=== PATIENT | female | born 1945 | race Caucasian/White ===

== ENCOUNTER → 2019-09-15 | Outpatient (CLI) | payer MEDICARE ==
[~2019-09-15] MED LIST: ALBU90I INH; AMOCLA250 PO; AZIT500 PO
[2019-09-15 15:16] LABS: BASOPHILS ABSOLUTE AUTO 0.05 K/mm3 (0.00-0.23); BASOPHILS PERCENT AUTO 1 % (0-2); EOSINOPHILS PERCENT AUTO 1 % (0-6); Hematocrit 44.4 % (33.0-51.0); Hemoglobin 13.9 g/dL (11.5-16.0); IMMATURE GRAN ABSOLUTE AUTO 0.02 K/mm3 (0.00-0.10); IMMATURE GRAN PERCENT AUTO 0 % (0-1); LYMPHOCYTES ABSOLUTE AUTO 2.51 K/mm3 (0.84-5.20); LYMPHOCYTES PERCENT AUTO 28 % (21-46); MONOCYTES ABSOLUTE AUTO 0.83 K/mm3 (0.16-1.47); MONOCYTES PERCENT AUTO 9 % (4-13); Mean Corpuscular HGB Conc 31.3 g/dL (31.5-36.5); Mean Corpuscular Volume 93 fL (80-100); Mean Platelet Volume 12.8 fL (9.1-12.4); NEUTROPHILS ABSOLUTE AUTO 5.39 K/mm3 (1.96-9.15); NEUTROPHILS PERCENT AUTO 61 % (41-73); Platelet Count 245 K/mm3 (150-400); RDW Coefficient Variation 13.5 % (11.7-14.2); RDW Standard Deviation 46.2 fL (35.1-46.3)
[2019-09-15 15:37] LABS: Alanine Aminotransfer (ALT/SGP 21 U/L (12-78); Albumin, Blood 3.5 g/dL (3.4-5.0); Albumin/Globulin Ratio 0.9 (0.8-1.8); Alk Phos 81 U/L (50-136); Anion Gap 7 mmol/L (6-16); Aspartate Aminotrans (AST/SGOT 13 U/L (12-37); Bilirubin, Total 0.3 mg/dL (0.1-1.0); Blood Urea Nitrogen 13 mg/dL (8-24); Bun/Creatinine Ratio 14.6 (12.0-20.0); CO2, Blood 25 mmol/L (21-32); Calcium, Blood 9.5 mg/dL (8.5-10.1); Chloride, Blood 106 mmol/L (98-108); Creatinine, Blood 0.89 mg/dL (0.40-1.00); Globulin, Blood 3.7 g/dL (2.2-4.0); Glomerular Filtration Rate >60 (60-); Glucose, Blood 92 mg/dL (70-99); Potassium, Blood 3.6 mmol/L (3.5-5.5); Sodium, Blood 138 mmol/L (136-145); Total Protein, Blood 7.2 g/dL (6.4-8.2)
[2019-09-16 12:56] LABS: CHOL/HDL RATIO 2.7; Cholesterol 159 mg/dL (50-200); HDL Cholesterol 59 mg/dL (>39); LDL/HDL RATIO 1.1; Low Density Lipoprotein Chol 67 mg/dL (0-110); Triglycerides 165 mg/dL (30-160); Very Low Density Lipoprot Chol 33 mg/dL (6-32)
== END ==
LOC: LAB 13:16 → LAB SHORT 13:16
PROVIDERS: Nurse Practitioner Family
DX: I10 Essential (primary) hypertension (principal)
CPT/HCPCS: 80053; 80061; 85025

== ENCOUNTER 2021-04-19 09:08 | Day surgery (SDC) | payer MEDICARE ==
[~2021-04-19 09:08] MED LIST changes: -ALBU90I INH; +ALBU90OI INH
--- NOTE | 2021-04-19 12:50 | NUR ---
pt bp 78/54, retaken 86/66 QUENTIN YATES NOTIFIED OF BPS OK TO DC HOME AND FOLLOW UP WITH PCP XRAY CALLED AND CLEARED NO F/U XRAY NEEDED PT STABLE DENIES PAIN NO DRAINAGE READY TO DC HOME DAUGHTER AT PTS BEDSIDE
--- NOTE | 2021-04-19 13:10 | NUR ---
Discharge instructions reviewed with patient. Patient verbalizes understanding. Copy given to patient to take home. Dressing to procedure site clean, dry, intact with no visible drainage, swelling, erythema or bruising noted. Patient States Post-Procedure ride home has been arranged. Discharged via wheelchair to private car for ride home.
== END 2021-04-19 22:46 | disposition home or self-care (01) ==
LOC: ORSCMMR 09:08 → CT 09:08 → EDSTATUS 10:00 → ORSCMMR 10:00
DX: J85.0 Gangrene and necrosis of lung (principal); J43.9 Emphysema, unspecified; Z80.0 Family history of malignant neoplasm of digestive organs; Z88.1 Allergy status to other antibiotic agents; Z88.8 Allergy status to other drugs, medicaments and biological substances; Z87.891 Personal history of nicotine dependence
CPT/HCPCS: 32408; 71045; 77012; 88305; 88341; 88342

== ENCOUNTER 2021-04-22 17:33 | Inpatient (IN) | payer MEDICARE ==
[~2021-04-22] VITALS: Ht 154.9 cm; Wt 57.3 kg
[2021-04-22 19:12] LABS: BASOPHILS ABSOLUTE AUTO 0.08 K/mm3 (0.00-0.23); BASOPHILS PERCENT AUTO 0 % (0-2); EOSINOPHILS ABSOLUTE AUTO 0.04 K/mm3 (0.00-0.68); EOSINOPHILS PERCENT AUTO 0 % (0-6); Hematocrit 38.9 % (33.0-51.0); Hemoglobin 12.5 g/dL (11.5-16.0); IMMATURE GRAN ABSOLUTE AUTO 0.15 K/mm3 (0.00-0.10); IMMATURE GRAN PERCENT AUTO 1 % (0-1); LYMPHOCYTES ABSOLUTE AUTO 3.05 K/mm3 (0.84-5.20); LYMPHOCYTES PERCENT AUTO 13 % (21-46); MONOCYTES ABSOLUTE AUTO 1.22 K/mm3 (0.16-1.47); MONOCYTES PERCENT AUTO 5 % (4-13); Mean Corpuscular HGB Conc 32.1 g/dL (31.5-36.5); Mean Corpuscular Volume 84 fL (80-100); Mean Platelet Volume 11.9 fL (9.1-12.4); NEUTROPHILS ABSOLUTE AUTO 18.79 K/mm3 (1.96-9.15); NEUTROPHILS PERCENT AUTO 81 % (41-73); Platelet Count 407 K/mm3 (150-400); RDW Coefficient Variation 15.3 % (11.7-14.2); RDW Standard Deviation 46.1 fL (35.1-46.3); Red Blood Cell Count 4.63 M/mm3 (3.80-5.20); White Blood Cell Count 23.33 K/mm3 (4.00-11.30)
[2021-04-22 19:21] LABS: Source, Urine Clean Catch
[2021-04-22 19:27] LABS: Bilirubin, Urine Neg (Neg); Blood, Urine Neg (Neg); Glucose Qualitative, Urine Neg (Neg); Ketones, Urine Neg (Neg); Leukocyte Esterase, Urine 1+ (Neg); Nitrite, Urine Neg (Neg); Protein, Urine 1+ (Neg); Urobilinogen, Urine NORM (Normal)
[2021-04-22 19:29] LABS: Phosphorus, Blood 2.8 mg/dL (2.5-4.9)
[2021-04-22 19:41] LABS: Appearance, Urine Hazy (Clear); Color, Urine Pale Yellow (P-Yellow)
[2021-04-22 19:42] LABS: Alanine Aminotransfer (ALT/SGP 18 U/L (12-78); Albumin, Blood 2.8 g/dL (3.4-5.0); Albumin/Globulin Ratio 0.7 (0.8-1.8); Alk Phos 148 U/L (50-136); Anion Gap 7 mmol/L (6-16); Aspartate Aminotrans (AST/SGOT 24 U/L (12-37); Bilirubin, Total 0.6 mg/dL (0.1-1.0); Blood Urea Nitrogen 17 mg/dL (8-24); Bun/Creatinine Ratio 19.8 (12.0-20.0); CO2, Blood 27 mmol/L (21-32); Calcium, Blood 13.6 mg/dL (8.5-10.1); Chloride, Blood 103 mmol/L (98-108); Creatinine, Blood 0.86 mg/dL (0.40-1.00); Globulin, Blood 4.1 g/dL (2.2-4.0); Glomerular Filtration Rate >60 (60-); Glucose, Blood 91 mg/dL (70-99); Potassium, Blood 3.6 mmol/L (3.5-5.5); Sodium, Blood 137 mmol/L (136-145); Total Protein, Blood 6.9 g/dL (6.4-8.2)
[2021-04-22 19:43] LABS: Bacteria Few /hpf; Red Blood Cells, Urine 0-2 /hpf (0-2); Squamous Epithelial Cells Few /hpf (Few); Yeast/Fungi Urine Few /hpf
[2021-04-22 19:44] LABS: Amorphous Light (0-Heavy); Granular Casts 0-2 /lpf (0); Hyaline Casts 0-2 /lpf (0-2); Mucus Heavy (0-Heavy)
[2021-04-22 19:45] LABS: Uric Acid Crystals Rare /hpf
[2021-04-23] MEDS ORDERED: TIOT18 INH (02:35)
[2021-04-23] MEDS ORDERED: DULERA 200 MCG-13 GM INH (02:36)
--- NOTE | 2021-04-23 04:25 | NUR ---
SHIFT SUMMARY: PATIENT ADMITTED FROM ED. UNSTEADY ON FEET WHEN TRANSFEREING FROM [facility]. DYSPNEA WITH EXERTION, ACCESSORY MUSCLE USE, TACHYPNEA, PURSE LIPPED BREATHING SAT >94% ON RA. COARSE LUNGS THROUGH OUT. TELE =NSR. PATEINT HAS TREMORS STATES "IM COLD" WARM BLANKET PROVIDED. COMPLAINTS OF INDIGESTION, DENIES NEED FOR INTERVENTION. URINARY URGENCY/FREQUECNY DUE TO BOLUS' GIVEN IN ED. ECCYMOSIS SCATTERED T/O. RAISED BROWN SPOTS ON BACK. PATIENT REPORTS INCREASED WEAKNES, CONFUSION, MALAISE, AND DECREASED INTAKE.
[2021-04-23 06:04] LABS: Anion Gap 8 mmol/L (6-16); Blood Urea Nitrogen 12 mg/dL (8-24); Bun/Creatinine Ratio 18.8 (12.0-20.0); CO2, Blood 24 mmol/L (21-32); Chloride, Blood 109 mmol/L (98-108); Creatinine, Blood 0.64 mg/dL (0.40-1.00); Glomerular Filtration Rate >60 (60-); Glucose, Blood 112 mg/dL (70-99); Potassium, Blood 2.8 mmol/L (3.5-5.5); Sodium, Blood 141 mmol/L (136-145)
[2021-04-23 06:05] LABS: Calcium, Blood 10.8 mg/dL (8.5-10.1)
[2021-04-23 08:07] LABS: Alanine Aminotransfer (ALT/SGP 17 U/L (12-78); Albumin, Blood 2.2 g/dL (3.4-5.0); Albumin/Globulin Ratio 0.6 (0.8-1.8); Alk Phos 87 U/L (50-136); Anion Gap 6 mmol/L (6-16); Aspartate Aminotrans (AST/SGOT 8 U/L (12-37); Bilirubin, Total 0.5 mg/dL (0.1-1.0); Blood Urea Nitrogen 13 mg/dL (8-24); Bun/Creatinine Ratio 20.2 (12.0-20.0); CO2, Blood 25 mmol/L (21-32); Calcium, Blood 10.7 mg/dL (8.5-10.1); Chloride, Blood 110 mmol/L (98-108); Creatinine, Blood 0.65 mg/dL (0.40-1.00); Globulin, Blood 3.4 g/dL (2.2-4.0); Glomerular Filtration Rate >60 (60-); Glucose, Blood 108 mg/dL (70-99); Magnesium, Blood 1.8 mg/dL (1.6-2.4); Sodium, Blood 141 mmol/L (136-145); Total Protein, Blood 5.6 g/dL (6.4-8.2)
--- NOTE | 2021-04-23 12:30 | NUR ---
PT ARRIVED BACK TO ROOM AFTER MRI AND IN RESPIRATORY DISTRESS WITH RR 28/MINUTE. DR. GUIDO NOTIIFIED AND BD PROTOCOL INITIATED. PT PLACED ON 2 LPM VIA NC AND SATS WERE 92%. PT RECOVERED AFTER 3-4 MINUTES. RT NOTIFIED OF BD PROTOCOL. PT THEN REQUESTED TO GET UP TO BSC TO URINATE AND BECAME DYSPNEIC AGAIN. PT DID NOT RECOVER WITH PPURSED LIP BREATHING, TRIPOD POSITION. PLACED ON NON REBREATHER AT 10 LPM AND RT NOTIFIED AGAIN OF URGENCY. RT ARRIVED AND STARTED NEBULIZER TX.
--- NOTE | 2021-04-23 13:53 | NUR ---
PT TX TO PCU 18/ BEDSIDE REPORT GIVEN TO KAMALJIT DUDLEY. BELONGINGS PACKED AND SENT WITH PT. DR. GUIDO REQUESTED TO HOLD DIGOXIN AT THIS TIME. MEDICATIONS DISCOONTINUED PER ORDER.
[2021-04-23 14:02] LABS: Magnesium, Blood 1.6 mg/dL (1.6-2.4); Potassium, Blood 3.8 mmol/L (3.5-5.5); Thyroid Stimulating Hormone 0.517 uIU/mL (0.360-4.800)
[2021-04-23 16:04] LABS: Source, Urine Foley catheter
[2021-04-23 16:09] LABS: Bilirubin, Urine Neg (Neg); Blood, Urine 1+ (Neg); Glucose Qualitative, Urine Neg (Neg); Ketones, Urine 2+ (Neg); Leukocyte Esterase, Urine Neg (Neg); Nitrite, Urine Neg (Neg); Protein, Urine Neg (Neg); Specific Gravity, Urine 1.015 (1.003-1.022); Urobilinogen, Urine NORM (Normal)
[2021-04-23 16:17] LABS: Color, Urine Pale Yellow (P-Yellow)
[2021-04-23 16:18] LABS: Appearance, Urine Clear (Clear); Bacteria Rare /hpf; Red Blood Cells, Urine 0-2 /hpf (0-2); Squamous Epithelial Cells Rare /hpf (Few); White Blood Cells, Urine 0-2 /hpf (0-5)
--- NOTE | 2021-04-23 17:46 | NUR ---
TRANSFER NOTE PT TRANSFERED FROM [facility] AT APPROX 1325, RECEIVED BEDSIDE REPORT FROM OCTAVIA OAKES. PT SLEEPY, RESPONDING TO VERBAL STIMULI, ORIENTED TO PERSON, FAMILY AND FOLLOWING DIRECTIONS. PT QUICKLY FALLS BACK TO SLEEP. PT BEDREST, ASSIST WITH REPOSITIONING. PT DENIES PAIN, CHEST PAIN/PRESSURE, NAUSEA, DIZZINESS AND NUMB/TINGLING. PT SPO2 WITH MOVEMENT, PT ON 4L O2 VIOLETTE NC, SPO2 >92%. PER TELE SINUS/SINUS TACH 90-110'S; BP SOFT BUT STABLE. ALVAREZ PLACED AND URINE SENT PER PROTOCOL. OTHER VSS. NO OTHER ACUTE CHANGES NOTED. WILL CONTINUE TO MONITOR UNTIL REPORT GIVEN TO ONCOMING RN.
[2021-04-23 18:50] LABS: EOSINOPHILS PERCENT AUTO 0 % (0-6); Hematocrit 32.9 % (33.0-51.0); Hemoglobin 10.5 g/dL (11.5-16.0); IMMATURE GRAN ABSOLUTE AUTO 0.23 K/mm3 (0.00-0.10); IMMATURE GRAN PERCENT AUTO 1 % (0-1); LYMPHOCYTES ABSOLUTE AUTO 1.25 K/mm3 (0.84-5.20); LYMPHOCYTES PERCENT AUTO 4 % (21-46); MONOCYTES ABSOLUTE AUTO 0.83 K/mm3 (0.16-1.47); MONOCYTES PERCENT AUTO 3 % (4-13); Mean Corpuscular HGB 27.3 pg (26.0-34.0); Mean Corpuscular HGB Conc 31.9 g/dL (31.5-36.5); Mean Corpuscular Volume 86 fL (80-100); Mean Platelet Volume 11.5 fL (9.1-12.4); NEUTROPHILS ABSOLUTE AUTO 31.08 K/mm3 (1.96-9.15); NEUTROPHILS PERCENT AUTO 93 % (41-73); Platelet Count 369 K/mm3 (150-400); RDW Coefficient Variation 15.5 % (11.7-14.2); RDW Standard Deviation 47.8 fL (35.1-46.3); Red Blood Cell Count 3.84 M/mm3 (3.80-5.20); White Blood Cell Count 33.43 K/mm3 (4.00-11.30)
[2021-04-23 18:52] LABS: BASOPHILS ABSOLUTE AUTO 0.04 K/mm3 (0.00-0.23); BASOPHILS PERCENT AUTO 0 % (0-2)
[2021-04-23 19:07] LABS: Anion Gap 5 mmol/L (6-16); Blood Urea Nitrogen 12 mg/dL (8-24); Bun/Creatinine Ratio 18.8 (12.0-20.0); CO2, Blood 23 mmol/L (21-32); Calcium, Blood 9.3 mg/dL (8.5-10.1); Chloride, Blood 117 mmol/L (98-108); Creatinine, Blood 0.64 mg/dL (0.40-1.00); Glomerular Filtration Rate >60 (60-); Glucose, Blood 98 mg/dL (70-99); Potassium, Blood 3.9 mmol/L (3.5-5.5); Sodium, Blood 145 mmol/L (136-145)
[2021-04-23] MEDS ORDERED: FLUTICASONE PRO16 GM (19:08)
[2021-04-23] MEDS ORDERED: REMERON15 M7 PO (19:09)
[2021-04-23] MEDS ORDERED: LORAZEPAM0.5 MG PO (19:09)
[2021-04-23] MEDS ORDERED: HYDCHL12.5 PO (19:11)
[2021-04-23] MEDS ORDERED: LOSA50 PO (19:12)
[2021-04-24 05:45] LABS: BASOPHILS ABSOLUTE AUTO 0.08 K/mm3 (0.00-0.23); BASOPHILS PERCENT AUTO 0 % (0-2); EOSINOPHILS ABSOLUTE AUTO 0.01 K/mm3 (0.00-0.68); EOSINOPHILS PERCENT AUTO 0 % (0-6); Hematocrit 30.2 % (33.0-51.0); Hemoglobin 9.7 g/dL (11.5-16.0); IMMATURE GRAN ABSOLUTE AUTO 0.15 K/mm3 (0.00-0.10); IMMATURE GRAN PERCENT AUTO 1 % (0-1); LYMPHOCYTES ABSOLUTE AUTO 1.63 K/mm3 (0.84-5.20); LYMPHOCYTES PERCENT AUTO 6 % (21-46); MONOCYTES ABSOLUTE AUTO 0.96 K/mm3 (0.16-1.47); MONOCYTES PERCENT AUTO 4 % (4-13); Mean Corpuscular HGB 27.6 pg (26.0-34.0); Mean Corpuscular HGB Conc 32.1 g/dL (31.5-36.5); Mean Corpuscular Volume 86 fL (80-100); Mean Platelet Volume 11.1 fL (9.1-12.4); NEUTROPHILS ABSOLUTE AUTO 22.55 K/mm3 (1.96-9.15); NEUTROPHILS PERCENT AUTO 89 % (41-73); Platelet Count 331 K/mm3 (150-400); RDW Coefficient Variation 15.7 % (11.7-14.2); RDW Standard Deviation 48.5 fL (35.1-46.3); Red Blood Cell Count 3.52 M/mm3 (3.80-5.20); White Blood Cell Count 25.38 K/mm3 (4.00-11.30)
--- NOTE | 2021-04-24 06:03 | NUR ---
SHIFT SUMMARY PT ALERT AND ORIENTED TO SELF AND FAMILY. PT ANXIOUS AND AGGITATED DURING SHIFT. DAUGHTER AT BEDSIDE TO ASSIST IN KEEPING PT CALM. HR STABLE. BP STABLE. NO CP OR PRESSURE REPORTED. OXYGEN SATURATION MAINTAINED ABOVE 92% ON 3 L VIA NC. PT ABLE TO TURN SELF IN BED NEEDED. ALVAREZ TO GRAVITY DRAIN. WILL CONT TO MONITOR UNTIL REPORT GIVEN TO DAYSHIFT RN.
[2021-04-24 06:16] LABS: Alanine Aminotransfer (ALT/SGP 18 U/L (12-78); Albumin, Blood 2.1 g/dL (3.4-5.0); Albumin/Globulin Ratio 0.7 (0.8-1.8); Alk Phos 87 U/L (50-136); Anion Gap 9 mmol/L (6-16); Aspartate Aminotrans (AST/SGOT 13 U/L (12-37); Bilirubin, Total 0.3 mg/dL (0.1-1.0); Blood Urea Nitrogen 12 mg/dL (8-24); CO2, Blood 19 mmol/L (21-32); Chloride, Blood 118 mmol/L (98-108); Creatinine, Blood 0.63 mg/dL (0.40-1.00); Globulin, Blood 3.1 g/dL (2.2-4.0); Glomerular Filtration Rate >60 (60-); Glucose, Blood 87 mg/dL (70-99); Potassium, Blood 3.6 mmol/L (3.5-5.5); Sodium, Blood 146 mmol/L (136-145); Total Protein, Blood 5.2 g/dL (6.4-8.2)
[2021-04-24 08:54] LABS: Base Excess Venous -5.6 mmol/L; Bicarbonate Venous 20.8 mmol/L (24.0-30.0); PCO2 Venous 23.7 mmHg (38-42); pH Blood Venous 7.49 (7.34-7.37)
--- NOTE | 2021-04-24 15:20 | NUR ---
Spiritual care visit conducted. Patient is sitting up in bed and alert. Patient's family is present and sitting quietly in the rm. with a very sober mood and not warm toward a spiritual care visit. I provide a calming presence and prayer. Pt voiced appreciation for the prayer. I will continue to remain available to patient and fmaily.
--- NOTE | 2021-04-24 17:10 | NUR ---
SHIFT NOTE PT WITH IMPROVING AMS, PT DOES REMAIN CONFUSED AND HER MENATION WAXES AND WANES, BUT SHE IS CONSISTENTLY A/O X2-3 T/O THE DAY. PT WITH NOTED WHEEZE, AND AT TIMES REPORTS FEELING TIGHT IN HER CHEST WHICH IMPROVES WIT BREATHING TREATMENT. VSS. DENIES CP. PT AMBLUATED TO AND FROM BEDSIDE CHAIR TODAY, SHE ARGUMENTATIVE AND REFUSING TO USE ASSISTIVE DEVICES. FAMILY ASKED THAT NOTARY COME IN TO ROOM TO SIGN ADVANCED DIRECTIVE, ONCE NOTARY TO ROOM FAMILY DEMANDS TO SPEAK TO CHARGE NURSE THAT PT NO LONGER WISHES TO BE A DNR. PER FAMILY IT WAS NOT UNDERSTOOD UPON ADMISSION WHAT DNR ENTAILED. PROVIDER IS CALLED, HE ARRIVED TO ROOM TO DISCUSS CODE STATUS WITH PT AND FAMILY AND STATUS IS CHANGED TO FULL CODE
[2021-04-25 04:39] LABS: BASOPHILS ABSOLUTE AUTO 0.07 K/mm3 (0.00-0.23); BASOPHILS PERCENT AUTO 0 % (0-2); EOSINOPHILS ABSOLUTE AUTO 0.04 K/mm3 (0.00-0.68); EOSINOPHILS PERCENT AUTO 0 % (0-6); Hematocrit 29.1 % (33.0-51.0); Hemoglobin 9.4 g/dL (11.5-16.0); IMMATURE GRAN ABSOLUTE AUTO 0.16 K/mm3 (0.00-0.10); IMMATURE GRAN PERCENT AUTO 1 % (0-1); LYMPHOCYTES ABSOLUTE AUTO 1.93 K/mm3 (0.84-5.20); LYMPHOCYTES PERCENT AUTO 9 % (21-46); MONOCYTES PERCENT AUTO 5 % (4-13); Mean Corpuscular HGB 27.5 pg (26.0-34.0); Mean Corpuscular HGB Conc 32.3 g/dL (31.5-36.5); Mean Corpuscular Volume 85 fL (80-100); Mean Platelet Volume 11.8 fL (9.1-12.4); NEUTROPHILS ABSOLUTE AUTO 18.99 K/mm3 (1.96-9.15); NEUTROPHILS PERCENT AUTO 85 % (41-73); Platelet Count 329 K/mm3 (150-400); RDW Coefficient Variation 15.9 % (11.7-14.2); RDW Standard Deviation 49.1 fL (35.1-46.3); Red Blood Cell Count 3.42 M/mm3 (3.80-5.20); White Blood Cell Count 22.39 K/mm3 (4.00-11.30)
[2021-04-25 05:13] LABS: Anion Gap 8 mmol/L (6-16); Blood Urea Nitrogen 10 mg/dL (8-24); CO2, Blood 21 mmol/L (21-32); Calcium, Blood 10.1 mg/dL (8.5-10.1); Chloride, Blood 114 mmol/L (98-108); Creatinine, Blood 0.56 mg/dL (0.40-1.00); Glomerular Filtration Rate >60 (60-); Glucose, Blood 104 mg/dL (70-99); Potassium, Blood 3.2 mmol/L (3.5-5.5); Sodium, Blood 143 mmol/L (136-145)
--- NOTE | 2021-04-25 06:00 | NUR ---
SHIFT SUMMARY PT ALERT TO SELF DURING SHIFT. ANXIOUS AND AGGITATED AT TIMES. DAUGHTER AT BEDSIDE DURING SHIFT PROVIDING COMFORT. HOSPITALIST AWARE OF PT CONVERTING INTO AFIB AND BACK TO NSR. ORDERS FOR CARDIZEM ONCE IF A-FIB SUSTAINED IN 120'S AND TO NOTIFY PHYSICIAN IF GIVEN. EKG ORDER FOR 5 AM, IN CHART. PT REPOSITIONED Q 2 HRS AND NEEDED FOR COMFORT. VSS. WILL CONT TO MONITOR UNTIL RPEORT GIVEN TO DAYSHIFT RN.
--- NOTE | 2021-04-25 09:41 | NUR ---
DR GUIDO MET WITH PT AND FAMILY, DEICSION WAS MADE TO D/C HOME WITH HOME HEALTH, PER THE FAMILY AND PT EXPRESSED UNDERSTANDING OF DC TEACHING. IV POTASSIUM HAS BEEN CHANGED TO PO.
[2021-04-25] MEDS ORDERED: METOPROLOL SUCC25 MG PO (11:39)
[2021-04-25] MEDS ORDERED: ELIQUIS5 M2 PO (11:39)
[2021-04-25] MEDS ORDERED: METO25ER PO (11:42)
--- NOTE | 2021-04-25 11:55 | NUR ---
Received referral from nurse outdoor emergency care technician (Tayler Forbes) on 04/25/2021. Patient is to discharge 04/25/2021 with orders for home health and elected [facility]. Patient is a previous community referral for home health from her PCP on 04/22/2021. At that time patient's daughter notified [facility] that patient was currently admitted to [facility] and that they would like home health services once patient discharged. Gathered all supporting documentation for referral (face sheet, face to face, med list, H&P, and most recent PT assessment) and sent to [facility] for review. No further interventions required. Kenzie Childs Referral Liaison
[2021-04-25 15:09] LABS: QUANTIFERON MITOGEN VALUE 3.19 IU/mL (.); QUANTIFERON NIL VALUE 0.02 IU/mL (.); QUANTIFERON TB1 AG VALUE 0.02 IU/mL (.); QUANTIFERON TB2 AG VALUE 0.02 IU/mL (.); QUANTIFERON-TB GOLD PLUS Negative (Negative)
== END 2021-04-25 12:54 | disposition home health service (06) | DRG 640 ==
LOC: ER 17:33 → ERHOLD 17:34 → MEDS 17:34 → PCU 04-23 13:27
PROVIDERS: Family Medicine; Physician Assistant; ADMIT Internal Medicine
DX: E83.52 Hypercalcemia (principal); G93.41 Metabolic encephalopathy; C77.1 Secondary and unspecified malignant neoplasm of intrathoracic lymph nodes; C34.92 Malignant neoplasm of unspecified part of left bronchus or lung; R65.10 Systemic inflammatory response syndrome (SIRS) of non-infectious origin without acute organ dysfunction; E44.0 Moderate protein-calorie malnutrition; Z66 Do not resuscitate; I48.0 Paroxysmal atrial fibrillation; E87.6 Hypokalemia; Z68.22 Body mass index [BMI] 22.0-22.9, adult; I95.9 Hypotension, unspecified; J44.9 Chronic obstructive pulmonary disease, unspecified; F41.0 Panic disorder [episodic paroxysmal anxiety]; K63.9 Disease of intestine, unspecified; Z28.21 Immunization not carried out because of patient refusal; Z88.1 Allergy status to other antibiotic agents; Z79.899 Other long term (current) drug therapy; Z87.891 Personal history of nicotine dependence
CPT/HCPCS: 36415; 70553; 71046; 80048; 80053; 81001; 82306; 82330; 82397; 82652; 82803; 83605; 83690; 83735; 83970; 84100; 84132; 84443; 84484; 85025; 86480; 87040; 87086; 93005; 93010; 93306; 94640; 96361; 96372; 96374; 96375; 97110; 97162; 97166; 97535; 99285-25; A9270; A9579; G0378; J0630; J0696; J1650; J2060; J3370; J3480; J3489; J7030; J7040; J7050; J7120

== ENCOUNTER 2021-05-13 15:24 | Inpatient (IN) | payer MEDICARE ==
[~2021-05-13] VITALS: Ht 154.9 cm; Wt 74.6 kg
[~2021-05-13 15:24] MED LIST changes: +DULERA 200 MCG-13 GM INH; +ELIQUIS5 M2 PO; +FLUTICASONE PRO16 GM; +HYDCHL12.5 PO; +LORAZEPAM0.5 MG PO; +LOSA50 PO; +METO25ER PO; +METOPROLOL SUCC25 MG PO; +REMERON15 M7 PO; +TIOT18 INH
[2021-05-13 16:12] LABS: EOSINOPHILS ABSOLUTE AUTO 0.07 K/mm3 (0.00-0.68); EOSINOPHILS PERCENT AUTO 0 % (0-6); Hematocrit 32.5 % (33.0-51.0); Hemoglobin 10.1 g/dL (11.5-16.0); IMMATURE GRAN ABSOLUTE AUTO 1.52 K/mm3 (0.00-0.10); IMMATURE GRAN PERCENT AUTO 3 % (0-1); LYMPHOCYTES ABSOLUTE AUTO 6.73 K/mm3 (0.84-5.20); LYMPHOCYTES PERCENT AUTO 12 % (21-46); MONOCYTES ABSOLUTE AUTO 2.44 K/mm3 (0.16-1.47); MONOCYTES PERCENT AUTO 4 % (4-13); Mean Corpuscular HGB 26.8 pg (26.0-34.0); Mean Corpuscular HGB Conc 31.1 g/dL (31.5-36.5); Mean Corpuscular Volume 86 fL (80-100); Mean Platelet Volume 10.8 fL (9.1-12.4); NEUTROPHILS ABSOLUTE AUTO 44.02 K/mm3 (1.96-9.15); NEUTROPHILS PERCENT AUTO 80 % (41-73); Platelet Count 799 K/mm3 (150-400); RDW Coefficient Variation 16.3 % (11.7-14.2); Red Blood Cell Count 3.77 M/mm3 (3.80-5.20)
[2021-05-13 16:18] LABS: Alanine Aminotransfer (ALT/SGP 25 U/L (12-78); Albumin, Blood 2.3 g/dL (3.4-5.0); Albumin/Globulin Ratio 0.5 (0.8-1.8); Alk Phos 162 U/L (50-136); Anion Gap 8 mmol/L (6-16); Aspartate Aminotrans (AST/SGOT 21 U/L (12-37); Bilirubin, Total 0.6 mg/dL (0.1-1.0); Blood Urea Nitrogen 15 mg/dL (8-24); Bun/Creatinine Ratio 17.1 (12.0-20.0); CO2, Blood 22 mmol/L (21-32); Calcium, Blood 12.6 mg/dL (8.5-10.1); Chloride, Blood 106 mmol/L (98-108); Creatinine, Blood 0.88 mg/dL (0.40-1.00); Globulin, Blood 4.5 g/dL (2.2-4.0); Glomerular Filtration Rate >60 (60-); Glucose, Blood 201 mg/dL (70-99); Potassium, Blood 4.2 mmol/L (3.5-5.5); Sodium, Blood 136 mmol/L (136-145); Total Protein, Blood 6.8 g/dL (6.4-8.2)
[2021-05-13 16:24] LABS: BASOPHILS ABSOLUTE AUTO 0.12 K/mm3 (0.00-0.23); BASOPHILS PERCENT AUTO 0 % (0-2)
[2021-05-13] MEDS ORDERED: Nexium40 MG PO (18:22)
[2021-05-13 20:37] LABS: International Normalized Ratio 1.35; Prothrombin Time Results 13.9 Sec (9.7-11.5)
[2021-05-14 04:40] LABS: EOSINOPHILS ABSOLUTE AUTO 0.03 K/mm3 (0.00-0.68); EOSINOPHILS PERCENT AUTO 0 % (0-6); Hematocrit 28.5 % (33.0-51.0); Hemoglobin 8.9 g/dL (11.5-16.0); IMMATURE GRAN ABSOLUTE AUTO 0.95 K/mm3 (0.00-0.10); IMMATURE GRAN PERCENT AUTO 2 % (0-1); LYMPHOCYTES ABSOLUTE AUTO 1.74 K/mm3 (0.84-5.20); LYMPHOCYTES PERCENT AUTO 3 % (21-46); MONOCYTES ABSOLUTE AUTO 1.27 K/mm3 (0.16-1.47); MONOCYTES PERCENT AUTO 2 % (4-13); Mean Corpuscular HGB 26.5 pg (26.0-34.0); Mean Corpuscular HGB Conc 31.2 g/dL (31.5-36.5); Mean Corpuscular Volume 85 fL (80-100); Mean Platelet Volume 10.5 fL (9.1-12.4); NEUTROPHILS ABSOLUTE AUTO 50.38 K/mm3 (1.96-9.15); NEUTROPHILS PERCENT AUTO 93 % (41-73); Platelet Count 600 K/mm3 (150-400); RDW Coefficient Variation 16.1 % (11.7-14.2); RDW Standard Deviation 49.4 fL (35.1-46.3); Red Blood Cell Count 3.36 M/mm3 (3.80-5.20)
[2021-05-14 04:46] LABS: BASOPHILS ABSOLUTE AUTO 0.03 K/mm3 (0.00-0.23); BASOPHILS PERCENT AUTO 0 % (0-2)
[2021-05-14 05:06] LABS: Albumin, Blood 2.2 g/dL (3.4-5.0); Albumin/Globulin Ratio 0.6 (0.8-1.8); Bilirubin, Total 0.5 mg/dL (0.1-1.0); Bun/Creatinine Ratio 22.8 (12.0-20.0); Creatinine, Blood 1.01 mg/dL (0.40-1.00); Potassium, Blood 4.4 mmol/L (3.5-5.5); Total Protein, Blood 6.2 g/dL (6.4-8.2)
--- NOTE | 2021-05-14 05:14 | NUR ---
SHIFT SUMMARY PT REMAINS PAINFUL WITH MOVEMENT. 50MCG FENTANYL PRN FOR PAIN + LIDOCAINE PATCHES PLACED TO RIGHT LATERAL RIBS/BACK. PT SLOW TO RESPOND TO QUESTIONS. REFUSING TO DRINK WATER AND TAKE PO, IVF INFUSING PER ORDERS. PT INCONTINENT OF URINE AND ATTENDS CHANGED PRN. PT TACHYPNIC AND TACHYCARDIC AT TIMES WITH EXERTION. ON 4L O2 VIA NC AND SATTING 90-94% WITH CONT BIOX IN PLACE. PLAN FOR REPEAT CHEST XRAY THIS AM AND FOR PT/OT/PALLIATIVE CARE CONSULTS TODAY. CALL LIGHT WITHIN REACH. BED ALARM IN PLACE FOR SAFETY.
[2021-05-14 09:44] LABS: Source, Urine Clean Catch
[2021-05-14 09:47] LABS: Bilirubin, Urine Neg (Neg); Blood, Urine 1+ (Neg); Glucose Qualitative, Urine Neg (Neg); Ketones, Urine Neg (Neg); Leukocyte Esterase, Urine Neg (Neg); Nitrite, Urine Neg (Neg); Protein, Urine 2+ (Neg); Specific Gravity, Urine 1.015 (1.003-1.022); Urobilinogen, Urine NORM (Normal)
[2021-05-14 09:56] LABS: Appearance, Urine Hazy (Clear); Bacteria Not Seen /hpf; Color, Urine Yellow (P-Yellow); Squamous Epithelial Cells Mod /hpf (Few); White Blood Cells, Urine Not Seen /hpf (0-5)
--- NOTE | 2021-05-14 12:00 | NUR ---
Initial Pal Care visit and case conferences with RN, OT & pt's sister, Lilia. Pt was admitted yesterday evening after a fall at home resulting in multiple rib fx, R pneumothorax and poss danny basal hemothorax. Carmen has a PMH of COPD, and recently discovered DARRYL mass. Pt is also on anticoag tx for hx of a-fib. Pt has been living with her sister, who states that pt's daughter has recently arrived from [place] and had planned to take pt back to [place] with her on Thursday. Pt had LULobe mass biopsied but results were inconclusive. Sister states pt was referred to Dr linda Patrick, who did not want to do bronchoscopy for additional w/u and biopsies due to pt's frailty and comorbidities. He wanted to give pt time to get stronger and to reconsider if she desired bronchoscopy due to the risks involved with her comorbidities, especially COPD. Sister states that js felt her mom would get better care in [place] and set a plan in place to move Carmen there. In review of EMR and case conference with OT, pt is not currently able to participate in conversations re: goals of care or code status. She was able to say that she lived with her sister but did not know where she was and could not converse. Pt does not have an advanced directive on file and sister states she has not had any conversations with pt in regards to her preferred code status or goals of care if her condition were to worsen. Sister has been caring for pt in her home and also caring for her own with dementia. Sister confirms that Lila pelaez, would be pt's medical decision maker if Carmen is unable to. RN reports Pt is not swallowing well and has refused all PO intake today. Js is expected to arrive here or already be here per pt's sister but as of 1214 Js has not arrived. Sister states Lila pelaez, went to pickle solution maker her at the airport and would be here directly after that. RN to page me when family arrives. Pt was sleeping soundly and did not wake to voice. She is lying fairly flat, supine. She had recently received pain medication for reported severe rib and chest pain. Pt looks flushed and exhausted lying in bed. She does not look comfortable but is not restless or making any noise. Resp even, sl labored. Plan to return when family arrives to review goals and plan of care per pt/family wishes.
[2021-05-14 12:25] LABS: Hematocrit 26.5 % (33.0-51.0); Hemoglobin 8.3 g/dL (11.5-16.0)
[2021-05-14 12:49] LABS: Mean Corpuscular HGB Conc 31.9 g/dL (31.5-36.5); Mean Corpuscular Volume 85 fL (80-100); Mean Platelet Volume 10.6 fL (9.1-12.4); Platelet Count 602 K/mm3 (150-400); RDW Coefficient Variation 16.3 % (11.7-14.2); RDW Standard Deviation 50.1 fL (35.1-46.3); Red Blood Cell Count 3.11 M/mm3 (3.80-5.20)
[2021-05-14 12:59] LABS: White Blood Cell Count 64.11 K/mm3 (4.00-11.30)
[2021-05-14 14:05] LABS: EOSINOPHILS PERCENT AUTO 0 % (0-6); Hematocrit 27.4 % (33.0-51.0); Hemoglobin 8.6 g/dL (11.5-16.0); IMMATURE GRAN ABSOLUTE AUTO 1.85 K/mm3 (0.00-0.10); IMMATURE GRAN PERCENT AUTO 3 % (0-1); LYMPHOCYTES ABSOLUTE AUTO 2.21 K/mm3 (0.84-5.20); LYMPHOCYTES PERCENT AUTO 3 % (21-46); MONOCYTES ABSOLUTE AUTO 2.83 K/mm3 (0.16-1.47); MONOCYTES PERCENT AUTO 4 % (4-13); Mean Corpuscular HGB 26.9 pg (26.0-34.0); Mean Corpuscular HGB Conc 31.4 g/dL (31.5-36.5); Mean Corpuscular Volume 86 fL (80-100); Mean Platelet Volume 10.6 fL (9.1-12.4); NEUTROPHILS ABSOLUTE AUTO 65.17 K/mm3 (1.96-9.15); NEUTROPHILS PERCENT AUTO 90 % (41-73); Platelet Count 618 K/mm3 (150-400); RDW Coefficient Variation 16.4 % (11.7-14.2); RDW Standard Deviation 50.9 fL (35.1-46.3)
[2021-05-14 14:09] LABS: Anion Gap 8 mmol/L (6-16); Blood Urea Nitrogen 27 mg/dL (8-24); Bun/Creatinine Ratio 30.4 (12.0-20.0); CO2, Blood 23 mmol/L (21-32); Calcium, Blood 10.9 mg/dL (8.5-10.1); Chloride, Blood 110 mmol/L (98-108); Creatinine, Blood 0.89 mg/dL (0.40-1.00); Glomerular Filtration Rate >60 (60-); Glucose, Blood 156 mg/dL (70-99); Potassium, Blood 4.3 mmol/L (3.5-5.5); Sodium, Blood 141 mmol/L (136-145)
[2021-05-14 14:13] LABS: BASOPHILS ABSOLUTE AUTO 0.03 K/mm3 (0.00-0.23); BASOPHILS PERCENT AUTO 0 % (0-2)
[2021-05-14 14:15] LABS: White Blood Cell Count 72.09 K/mm3 (4.00-11.30)
[2021-05-14 14:20] LABS: BASOPHILS PERCENT MAN 0 % (0-2); EOSINOPHILS PERCENT MAN 0 % (0-6); LYMPHOCYTES ABSOLUTE MAN 1.28 K/mm3 (0.84-5.20); LYMPHOCYTES PERCENT MAN 2 % (21-46); MONOCYTES ABSOLUTE MAN 2.56 K/mm3 (0.16-1.47); MONOCYTES PERCENT MAN 4 % (4-13); NEUTROPHILS ABSOLUTE MAN 60.26 K/mm3 (1.96-9.15); SEG NEUTROPHILS PERCENT MAN 94 % (41-73); TOTAL CELLS COUNTED 100
--- NOTE | 2021-05-14 15:16 | NUR ---
Pal Care visit to pt's room and js at bedside. Pt remained sound asleep t/o my visit. Case conferenced with pt's RN, FRANSICO, and Rn Cvor came to visit as I was leaving. PT/OT visits today were brief due to pt's pain and fatigue and inability to participate in therapy. 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 I am unclear as to what pt's baseline level of cognition is, as pt was encephalopathic on her previous admission 3-4 weeks ago. Js is distressed re: plane tickets for her mom to go to [place] on Thursday and need to cancel and an appointment with a physician in [place]. Pt appears gravely ill. Js asked how long pt would be here so she could reschedule flight. I asked that she wait to see if her mom was able to improve from her current status but cautioned, that with no PO intake and overall decline over the past month that travel may not be possible. Discussed pain and s/s management with pt's RN, js and pt's , as well as pharmacy. VO obtained to start duragesic patch, 25mcg for longer lasting pain management with prn use of IV fentanyl for breakthru pain. Js in agreement with that plan and looking forward to speaking with Dr. Dr Bernstein to try and meet with js later this afternoon. Report to RN, FRANSICO and on my visit with js. Pt's Son-in-law also present.
--- NOTE | 2021-05-14 15:38 | NUR ---
Spiritual Care visit. Pt. is unresponsive, but family is present. Family welcomes my visit. Family is a little unsettled as they were in the process of trying to move the pt. to [place] where they live and there are better healthcare hospice options. Listened empathetically, and established rapport woth family. Family verbalized the desire to get a clearer picture of the pts. diagnosis. NOrmlaized the Pt. experience. Family displayed evidence of understanding and acceptance. Palliative Care was present and communicated that the doctor was planning to come leter in the afternoon. Prayed pastorally for both the pt. and family. Family verbalized gratitude for the spiritual care visit.
--- NOTE | 2021-05-14 18:42 | NUR ---
Spiritual Care Attempted. The floor nurse asked if I could check on the grieving family. When we approached they respectfully waived this systems analyst engineer off. I will check pt. in the a.m.
--- NOTE | 2021-05-15 01:35 | NUR ---
PT HAD AN INCREASE IN RESPIRATIONS AND WORK OF BREATHING, RESPIRATORY THERAPIST CALLED TO ASSESS PATIENT. AT THAT TIME RESPIRATORY THERAPIST RECOMMENDED CHEST XRAY, DR CALLED AND XRAY WAS ORDERED.
--- NOTE | 2021-05-15 01:55 | NUR ---
CXR: CHEST XRAY RESULTS REVIEWED W/DR HAMMOND. NEW ORDER TO PLACE PT ON CPAP AT LOWEST SETTINGS. RT AND PRIMARY RN NOTIFIED.
[2021-05-15 02:50] LABS: Alanine Aminotransfer (ALT/SGP 17 U/L (12-78); Albumin, Blood 2.2 g/dL (3.4-5.0); Albumin/Globulin Ratio 0.6 (0.8-1.8); Alk Phos 142 U/L (50-136); Anion Gap 10 mmol/L (6-16); Aspartate Aminotrans (AST/SGOT 22 U/L (12-37); Bilirubin, Total 0.3 mg/dL (0.1-1.0); Blood Urea Nitrogen 33 mg/dL (8-24); Bun/Creatinine Ratio 37.5 (12.0-20.0); CO2, Blood 22 mmol/L (21-32); Calcium, Blood 9.9 mg/dL (8.5-10.1); Chloride, Blood 113 mmol/L (98-108); Creatinine, Blood 0.88 mg/dL (0.40-1.00); Globulin, Blood 3.6 g/dL (2.2-4.0); Glomerular Filtration Rate >60 (60-); Glucose, Blood 104 mg/dL (70-99); Potassium, Blood 4.4 mmol/L (3.5-5.5); Sodium, Blood 145 mmol/L (136-145); Total Protein, Blood 5.8 g/dL (6.4-8.2)
[2021-05-15 02:58] LABS: BASOPHILS ABSOLUTE AUTO 0.03 K/mm3 (0.00-0.23); BASOPHILS PERCENT AUTO 0 % (0-2); EOSINOPHILS PERCENT AUTO 0 % (0-6); IMMATURE GRAN ABSOLUTE AUTO 2.92 K/mm3 (0.00-0.10); IMMATURE GRAN PERCENT AUTO 3 % (0-1); LYMPHOCYTES ABSOLUTE AUTO 1.88 K/mm3 (0.84-5.20); LYMPHOCYTES PERCENT AUTO 2 % (21-46); MONOCYTES ABSOLUTE AUTO 3.67 K/mm3 (0.16-1.47); MONOCYTES PERCENT AUTO 4 % (4-13); Mean Corpuscular HGB 26.9 pg (26.0-34.0); Mean Corpuscular HGB Conc 30.8 g/dL (31.5-36.5); Mean Corpuscular Volume 88 fL (80-100); Mean Platelet Volume 10.3 fL (9.1-12.4); NEUTROPHILS ABSOLUTE AUTO 81.72 K/mm3 (1.96-9.15); NEUTROPHILS PERCENT AUTO 91 % (41-73); Platelet Count 609 K/mm3 (150-400); RDW Coefficient Variation 16.4 % (11.7-14.2); RDW Standard Deviation 52.3 fL (35.1-46.3); Red Blood Cell Count 2.97 M/mm3 (3.80-5.20)
[2021-05-15 03:00] LABS: White Blood Cell Count 90.22 K/mm3 (4.00-11.30)
--- NOTE | 2021-05-15 03:00 | NUR ---
CRIMINAL INVESTIGATOR CUSTOMS RT TO PLACE CPAP AT APPROX 0200, PT APPEARED AGGITATED AND IN PAIN. PAIN MEDICATION GIVEN AT APPROX 0215. PT HAD DECREASED LOC AND O2 SATURATIONS STARTED DECREASING. COUNTY AGRICULTURAL AGENT NOTIFIED, NARCAN GIVEN AT 0220, CRIMINAL INVESTIGATOR CUSTOMS CALLED. NO EFFECTED NOTED FROM NARCAN, STATS MAINTAINING MID 70S. CRIMINAL INVESTIGATOR CUSTOMS AND NURSING MARKETING DIRECTOR ASSISTED LIVING IN ROOM AT THAT TIME, RT PLACED PATIENT ON NONREBREATHER, STATS BEGAN TO INCREASE TO 90'S (SEE CRIMINAL INVESTIGATOR CUSTOMS FLOW SHEET FOR VITALS.) ANOTHER DOSE OF NARCAN WAS GIVEN AT 022, NO CHANGE IN RESPONSIVENESS. DR NAJERA AND RESIDENT IN ROOM, PT TRANSFERED TO ICU. BELONGINGS INCLUDING DENTURES AND GLASSES TAKEN TO PT NEW ROOM. BEDSIDE REPORT GIVEN. DAUGHTER NOTIFIED AND STATED SHE WOULD NOTIFY PATIENTS SISTER.
[2021-05-15 04:19] LABS: PCO2 Arterial > 105 mmHg (35-45); PO2 Arterial 126 mmHg (80-100); pH Blood Arterial 6.96 (7.35-7.45)
[2021-05-15 05:47] LABS: PCO2 Arterial 33.6 mmHg (35-45); PO2 Arterial 68.7 mmHg (80-100); pH Blood Arterial 7.41 (7.35-7.45)
--- NOTE | 2021-05-15 05:47 | NUR ---
Patient brought to unit via bed at 0230 by ONCOLOGY CONSULTANT. On arrivial, patient was obtunded. tachycardic, but otherwise VSS. Pt intubated for airway protection at 0250 without complication. OGT and ring inserted per order. Chest xray obtained. Pt becoming more responsive, moving in bed, reaching for tubes, lines. Bilateral soft wrist restraints applied, sedation started. Pt taken to head CT by this RN and RT, tolerated well. Dr. Mathews performing bedside US, consent obtained for L side thoracentesis. Procedure sucessful; vital signs remained stable. Occlusive dressing applied. Minimal UOP since ring indertion; Dr mathews made aware. Maintenace fluid initiated.
[2021-05-15 07:25] LABS: Automated BF RBC Count 0.044 M/mm3 (0-0); Automated BF WBC Count 5.473 K/mm3 (0-999); Body Fluid WBC Count 5473 /mm3 (0-999); RBC Count, Body Fluid 44000 /mm3 (0-0)
[2021-05-15 07:39] LABS: Albumin, Body Fluid 1.6 g/dL; Glucose, Body Fluid 96 mg/dL; Lactate Dehydrogenase, Body Fl 201 U/L; Protein, Body Fluid 3.2 g/dL
[2021-05-15 07:55] LABS: Total Cell Count, Body Fluid 100
[2021-05-15 08:02] LABS: Color, Body Fluid Red (None-Yellow)
[2021-05-15 08:03] LABS: Appearance, Body Fluid Hazy (Clear)
--- NOTE | 2021-05-15 08:53 | NUR ---
ASSUMED CARE REPORT FROM JAIMIE DUDLEY. PT INTUBATED AND SEDATED. VENT SETTINGS AC/VC 28/350/5/50%. LUNGS DIM THOUGHOUT. SMALL AMOUNT OF THICK YELLOW SECRETIONS THROUGH ETT. TACHYPNEA. PROPOFOL GTT FOR SEDATION, FENTANYL IVP PRN. COUGH/SWALLOW REFLEX PRESENT. GIANFRANCO. GRIMACES TO PAINFUL STIMULI. DOES NOT FOLLOW COMMANDS. ST ON MONITOR, RATE 120'S. PLAN FOR METOPROLOL PT. BP STABLE. ABD ROUND, SOFT, NON TENDER. BT X 4. OGT TO LIS. GREEN BILE OUT. ALVAREZ PATENT, SCANT CHETAN URINE IN DRAINAGE BAG. ECCHYMOSIS TO LATERAL RIGHT TRUNK. IVF AT 75 ML/HR. PIV X 2. WILL CONTINUE TO MONITOR.
--- NOTE | 2021-05-15 10:32 | NUR ---
Pal Care visit to pt/family and Case conference with RN, CM & Geovanna Maguire & Lucila. EMR reviewed and events and transfer to ICU due to resp failure, increased unresponsiveness and critical CO2 noted. Currently, pt is intubated and medicated for pain and agitation. HR is in the 120's. Pedal pulse palpable. Pt is unresponsive to voice and touch. Multiple family members at the bedside including Medical proxy, Js-Lila, twin-sister Lilia, pt's son in law and brother in law. Print Line Inspector also present for joint meeting with family at bedside. Current status and concerns reviewed and gently discussed multiple comorbidities and new acute issues weighing in on very guarded prognosis. Inquired to ascertain if js would consider transfer to a higher level facility in order to pursue biopsy of lung mass and js is not interested in that. She wants to focus on the immediate issue of pt's resp failure and getting her off the vent. She states her mom would not want to be on a ventilator detention. After a thorough discussion of code status and level of care desired, js states she wants full care but no CPR. If pt is able to to be extubated, she would not want pt reintubated if her mom was too weak to cont breathing on her own. VO obtained and entered for DNR and report on my visit provided to Dr Maguire and RN. Plan is for to review clinical status in detail with js after he can review records. Pt does not currently have nonverbal indicators noted of pain or distress. Pal Care to cont to follow. Js does not want to discuss comfort care or hospice at this time, stating, "They take everything away and just give them morphine. I want her to have fluids, food, medications".
--- NOTE | 2021-05-15 12:20 | NUR ---
Pt. is unresponsive. Family members are present. Re-establish rapport with Pts. family. Assist family in rotating family into ICU. Will monitor family and make spiritual care available as conditions allow.
--- NOTE | 2021-05-15 17:23 | NUR ---
SHIFT SUMMARY PT REMAINS INTUBATED AND SEDATED. VENT SETTINGS AC/VC 28/380/5/45%. LUNGS DIM THROUGHOUT, COARSE ON LEFT SIDE. PROPOFOL AND FENTANYL GTT FOR PAIN AND SEDATION. PT COMPLIANT c VENT, RR 28. COUGH/GAG/SWALLOW REFLEX. GRIMACES c PAIN. DOES NOT FOLLOW COMMANDS. SR, RATE 100, BP STABLE. TUBE FEEDS STARTED THIS SHIFT, VHP AT GOAL 20 ML/HR c 30 ML FLUSHES q 4 HR. ALVAREZ PATENT, 75 ML CHETAN CLOUDY URINE OUT. DR ASTUDILLO AWARE, IVF INCREASED TO 200 ML/HR. FAMILY UPDATED THIS SHIFT, DAUGHTER KASSI CHANGED CODE STATUS TO DNR, REQUESTING THAT PT NOT HAVE PURPLE BAND PLACED ON HER D/T PREVIOUS DISTRESS WHEN SHE HAD BAND ON PREVIOUS ADMISSION. FAMILY AWARE OF POTENTIAL FOR ACCIDENTAL CODE. WILL CONTINUE TO MONITOR UNTIL REPORT TO ONCOMING NURSE.
[2021-05-15 17:45] LABS: Source, Urine Foley catheter
[2021-05-15 17:49] LABS: Bilirubin, Urine Neg (Neg); Blood, Urine 5+ (Neg); Glucose Qualitative, Urine Neg (Neg); Ketones, Urine Neg (Neg); Leukocyte Esterase, Urine 2+ (Neg); Nitrite, Urine Neg (Neg); Protein, Urine 2+ (Neg); Specific Gravity, Urine 1.015 (1.003-1.022); Urobilinogen, Urine NORM (Normal)
[2021-05-15 18:13] LABS: Appearance, Urine Hazy (Clear); Color, Urine Pale Yellow (P-Yellow)
[2021-05-15 18:14] LABS: Amorphous Light (0-Heavy); Bacteria Mod /hpf; Granular Casts 0-2 /lpf (0); Hyaline Casts 0-2 /lpf (0-2); Mucus Mod (0-Heavy); Red Blood Cells, Urine 25-50 /hpf (0-2); Squamous Epithelial Cells Rare /hpf (Few)
[2021-05-16 04:55] LABS: Hematocrit 21.3 % (33.0-51.0); Hemoglobin 6.7 g/dL (11.5-16.0); Mean Corpuscular HGB 27.2 pg (26.0-34.0); Mean Corpuscular HGB Conc 31.5 g/dL (31.5-36.5); Mean Corpuscular Volume 87 fL (80-100); Mean Platelet Volume 10.5 fL (9.1-12.4); NRBC ABSOLUTE 0.02 K/mm3 (0.00-0.02); Platelet Count 445 K/mm3 (150-400); RDW Coefficient Variation 16.6 % (11.7-14.2); RDW Standard Deviation 51.8 fL (35.1-46.3); Red Blood Cell Count 2.46 M/mm3 (3.80-5.20)
[2021-05-16 05:27] LABS: Albumin, Blood 1.6 g/dL (3.4-5.0); Albumin/Globulin Ratio 0.4 (0.8-1.8); Bilirubin, Total 0.6 mg/dL (0.1-1.0); Bun/Creatinine Ratio 34.9 (12.0-20.0); Calcium, Blood 8.4 mg/dL (8.5-10.1); Creatinine, Blood 1.09 mg/dL (0.40-1.00); Globulin, Blood 3.6 g/dL (2.2-4.0); Magnesium, Blood 2.2 mg/dL (1.6-2.4); Phosphorus, Blood 1.5 mg/dL (2.5-4.9); Potassium, Blood 3.6 mmol/L (3.5-5.5); Total Protein, Blood 5.2 g/dL (6.4-8.2)
[2021-05-16 05:35] LABS: BAND PERCENT MAN 5 % (0-8); BASOPHILS PERCENT MAN 0 % (0-2); EOSINOPHILS PERCENT MAN 0 % (0-6); LYMPHOCYTES ABSOLUTE MAN 0.61 K/mm3 (0.84-5.20); LYMPHOCYTES PERCENT MAN 1 % (21-46); MONOCYTES ABSOLUTE MAN 3.66 K/mm3 (0.16-1.47); MONOCYTES PERCENT MAN 6 % (4-13); MYELOCYTE ABSOLUTE MAN 0.61 K/mm3 (0.00-0.00); MYELOCYTE PERCENT MAN 1 % (0-0); NEUTROPHILS ABSOLUTE MAN 56.21 K/mm3 (1.96-9.15); SEG NEUTROPHILS PERCENT MAN 87 % (41-73); TOTAL CELLS COUNTED 100
--- NOTE | 2021-05-16 08:14 | NUR ---
ASSUMED CARE BEDSIDE REPORT FROM JAIMIE DUDLEY AT 0700. PT INTUBATED AND SEDATED. VENT SETTINGS AC/VC 28/300/5/45%. LUNGS DIM THROUGHOUT, COARSE ON LEFT SIDE. PROPOFOL AND FENTANYL GTT FOR PAIN AND SEDATION. PT GRIMACES c ORAL CARE, TACHYPENIC. DOES NOT FOLLOW COMMANDS. NO WITHDRAWAL FROM PAINFUL STIMULI. CORNEAL REFLEX INTACT. COUGH/GAG/SWALLOW REFLEX PRESENT. ST ON MONITOR, RATE 100. BP STABLE. AFEBRILE. WARM TO TOUCH. ABD DISTENDED, FIRM, HYPOACTIVE BT. TUBE FEEDS AT GOAL, 20 ML/HR, 400 ML RESIDUALS THIS AM, 250 ML REFED. ALVAREZ PATENT, DRAINING CHETAN URINE c SEDIMENT TO GRAVITY. PHOS TO BE REPLACED THIS SHIFT. WILL CONTINUE TO MONITOR.
[2021-05-16 08:53] LABS: Vancomycin, Random 7.8 ug/mL
--- NOTE | 2021-05-16 12:16 | NUR ---
Spiritual Care Visit. Fill out a "Things we care to know..." survey with daughter Lila and other family members.
[2021-05-16 16:24] LABS: Hematocrit 23.8 % (33.0-51.0); Hemoglobin 7.6 g/dL (11.5-16.0)
--- NOTE | 2021-05-16 18:07 | NUR ---
SHIFT SUMMARY NO ACUTE CHANGES THIS SHIFT. REMAINS INTUBATED AND SEDATED. VENT SETTINGS 16/300/5/45. PROPOFOL AND FENTANYL GTT FOR PAIN AND SEDATION. LUNGS COARSE ON LEFT SIDE, DIM THROUGHOUT. SMALL THICK [place] SECRETIONS THROUGH ETT. RESPONSIVE TO PAINFUL STIMULI, DOES NOT FOLLOW COMMANDS. TUBE FEEDS INCREASED TO 35 ML/HR, RESIDUALS 250-500 ML THIS SHIFT, REGLAN ADDED. BOWEL CARE GIVEN. ABD SLIGHTLY FIRM. BT X 4. ALVAREZ PATENT, DRAINING CLOUDY YELLOW URINE c SEDIMENT TO GRAVITY. 275 ML OUT THIS SHIFT. 1 UNIT OF PRBC TRANSFUSED. LR CHANGED TO 100 ML/HR. TMAX 100.6, TYLENOL GIVEN. WILL CONTINUE TO MONITOR UNTIL REPORT TO ONCOMING NURSE.
[2021-05-17 05:01] LABS: BASOPHILS ABSOLUTE AUTO 0.15 K/mm3 (0.00-0.23); BASOPHILS PERCENT AUTO 0 % (0-2); EOSINOPHILS ABSOLUTE AUTO 0.02 K/mm3 (0.00-0.68); EOSINOPHILS PERCENT AUTO 0 % (0-6); Hematocrit 22.1 % (33.0-51.0); IMMATURE GRAN ABSOLUTE AUTO 1.53 K/mm3 (0.00-0.10); IMMATURE GRAN PERCENT AUTO 3 % (0-1); LYMPHOCYTES ABSOLUTE AUTO 1.58 K/mm3 (0.84-5.20); LYMPHOCYTES PERCENT AUTO 3 % (21-46); MONOCYTES ABSOLUTE AUTO 1.97 K/mm3 (0.16-1.47); MONOCYTES PERCENT AUTO 4 % (4-13); Mean Corpuscular HGB 27.6 pg (26.0-34.0); Mean Corpuscular HGB Conc 31.7 g/dL (31.5-36.5); Mean Corpuscular Volume 87 fL (80-100); Mean Platelet Volume 10.6 fL (9.1-12.4); NEUTROPHILS ABSOLUTE AUTO 49.13 K/mm3 (1.96-9.15); NEUTROPHILS PERCENT AUTO 90 % (41-73); NRBC ABSOLUTE 0.02 K/mm3 (0.00-0.02); Platelet Count 351 K/mm3 (150-400); RDW Coefficient Variation 16.4 % (11.7-14.2); RDW Standard Deviation 51.9 fL (35.1-46.3); Red Blood Cell Count 2.54 M/mm3 (3.80-5.20)
[2021-05-17 05:03] LABS: White Blood Cell Count 54.38 K/mm3 (4.00-11.30)
[2021-05-17 05:19] LABS: Albumin, Blood 1.4 g/dL (3.4-5.0); Albumin/Globulin Ratio 0.4 (0.8-1.8); Bilirubin, Total 1.1 mg/dL (0.1-1.0); Calcium, Blood 8.1 mg/dL (8.5-10.1); Creatinine, Blood 1.2 mg/dL (0.40-1.00); Globulin, Blood 3.6 g/dL (2.2-4.0); Magnesium, Blood 2.2 mg/dL (1.6-2.4); Phosphorus, Blood 2.8 mg/dL (2.5-4.9)
--- NOTE | 2021-05-17 06:15 | NUR ---
SHIFT SUMMARY NO MAJOR EVENTS DURING SHIFT. VENT SETTINGS REMAIN THE SAME AT 16/300/5/40% WITH PATIENT TACHYPNEIC IN THE 20'S-SPO2 LOW TO MID 90'S. NO RESPONSES FROM PATIENT DURING ASSESSMENTS, BUT WOULD BITE DOWN ON THE [place] SWABS DURING ORAL CARE AND ATTEMPT TO OPEN EYES WHEN REPOSITIONED. PROPOFOL REMAINED @ 30 MCG/KG/MIN AND FENTANYL TANNING CONSULTANT @ 50MCG/MIN. NS INF @ 100ML/HR. TF TURNED OFF AROUND 0000 D/T HIGH RESIDUALS OF 640ML. REPEAT RESIDUAL AT 0400 WAS 355. TF REMAINS OFF AT THIS TIME. NO BM DURING SHIFT AND BT HYPOACTIVE. ALVAREZ DRAINED A TOTAL OF 235ML YELLOW CLOUDY URINE W/ SEDIMENT TO GRAVITY. LABS CAME BACK WITH A LOW CALIUM OF 8.1. CALL MADE TO DR. HAMMOND WITH ORDERS RECIEVED TO KEEP WATCH OF LEVELS-NO REPLACEMENTS ORDERED AT THIS TIME.
--- NOTE | 2021-05-17 07:28 | NUR ---
ASSUME CARE: I have assumed care of pt at this time.
[2021-05-17 08:33] LABS: Vancomycin, Trough 13.1 ug/mL (5.0-10.0)
--- NOTE | 2021-05-17 10:37 | NUR ---
UPDATE: RN spoke with pt's daughter to update her on pt status.
--- NOTE | 2021-05-17 12:58 | NUR ---
UPDATE: Dr Saeed called regarding hypotension; verbal order for norepi.
--- NOTE | 2021-05-17 14:40 | NUR ---
Spiritual Care Visit Pt. is unresponsive on a ventilator. Family present (daughter and son-in-law from [place]). Re-establish rapport as I have been with family throughout the week. Daughter is mildly unsettled about not being updated on the plan of care. Normalize the Pt./family experience, and give pastoral counse. Daughter displays evidence of appreciation for the care the Pt. is receiving and seems to understand that their plans of moving pt. to [place] must change. Continue to establish rapport. Prayed for Pt. Family verbalized gratitude for the spiritual care visit. Relayed families questions to the ICU charge nurse.
--- NOTE | 2021-05-17 15:20 | NUR ---
SPONTANEOUS: PT PLACED ON SPONTANEOUS BY DR DAUGHERTY.
--- NOTE | 2021-05-17 18:29 | NUR ---
PEEP INCREASE: PEEP INCREASED FROM [address] DAUGHERTY
--- NOTE | 2021-05-17 18:44 | NUR ---
SHIFT SUMMARY: Vent settings; PS peep 10m fio2 40%. She has been tolerating PS well for approximately 3 hours. Propofol running at 25 mg/kg/hr, fentanyl 25mcg/hr. Norepi started this afternoon for hypotension, currently running at 6. PICC was discussed with Dr Saeed; RN was instructed to start second PG. 18g 8cm started in LUE. UOP only 250, provider was made aware. Small, pensil eraser sized skin tear on glueal cleft visualized. Family at bedside this afternoon.
--- NOTE | 2021-05-17 22:28 | NUR ---
ASSUMED CARE RECEIVED REPORT FROM OCTAVIA FOSTER AT 1900. PT IS INTUBATED AND SEDATED. PROPOFOL AT 25MCG/KG/HR, FENTANYL FORENSIC TECHNICIAN AT 50MCG/HR. SHE DOES NOT OPEN HER EYES, NO PURPOSEFUL MOVEMENTS, BUT DOES RESPOND TO PAIN AND GRIMACES WITH ORAL CARE. BECOMES TACHYPNEIC WITH REPOSITIONING. VENT IS ON PRESSURE SUPPORT WITH PEEP OF 10. FIO2 40%, RR IN 20'S. SPO2 95%. HR IS ST WITH RATE IN 100-120, DOES NOT SUSTAIN OVER 120. METOPROLOL GIVEN FOR RATE CONTROL. LEVOPHED AT 6MCG/MIN TO KEEP MAP >65. OG WITH VHP AT GOAL OF 35ML/HR WITH Q4H 30ML H20 FLUSHES. BT ACTIVE X4. ALVAREZ DRAINING TO GRAVITY, YELLOW URINE. FEBRILE AT 99.4. ORDERS REVIEWED, AND PT'S DAUGHTER, KASSI, UPDATED AT 2114.
--- NOTE | 2021-05-18 01:35 | NUR ---
REASSESSMENT LUNGS ARE CLEAR ON RIGHT UPPER, DIMINISHED IN RIGHT MIDDLE AND BASE, RUB HEARD OCCASIONALLY IN RIGHT MIDDLE & BASE. LEFT UPPER HAS NOTABLE RUB, AND IS ALSO HEARD IN LEFT BASE. LOW MINUTE VOLUME ALARMING FREQUENTLY ALONG WITH LOW TIDAL VOLUMES, WHICH WHEN LOW ARE IN 240-275 RANGE. RT CALLED AND PEEP INCREASED TO 8. PT BP MONITORED [id number] FOR 15 MINUTES. BP REMAINED STABLE. IMPROVEMENT OF ACCESSORY MUSCLE USE WITH INSPIRATION. RESIDUALS OF 350ML, AND HYPOACTIVE BOWEL TONES. TUBE FEED TURNED OFF AT 0100. WILL REASSESS DURING NEXT REASSESSMENT.
[2021-05-18 04:47] LABS: EOSINOPHILS PERCENT AUTO 0 % (0-6); Hematocrit 24.1 % (33.0-51.0); Hemoglobin 7.5 g/dL (11.5-16.0); IMMATURE GRAN ABSOLUTE AUTO 1.65 K/mm3 (0.00-0.10); IMMATURE GRAN PERCENT AUTO 3 % (0-1); LYMPHOCYTES ABSOLUTE AUTO 1.62 K/mm3 (0.84-5.20); LYMPHOCYTES PERCENT AUTO 3 % (21-46); MONOCYTES ABSOLUTE AUTO 2.53 K/mm3 (0.16-1.47); MONOCYTES PERCENT AUTO 4 % (4-13); Mean Corpuscular HGB 27.7 pg (26.0-34.0); Mean Corpuscular HGB Conc 31.1 g/dL (31.5-36.5); Mean Corpuscular Volume 89 fL (80-100); Mean Platelet Volume 10.6 fL (9.1-12.4); NEUTROPHILS ABSOLUTE AUTO 55.31 K/mm3 (1.96-9.15); NEUTROPHILS PERCENT AUTO 91 % (41-73); NRBC ABSOLUTE 0.06 K/mm3 (0.00-0.02); NRBC Auto 0.1 /100 WBC (0.0-0.2); Platelet Count 425 K/mm3 (150-400); RDW Standard Deviation 54.9 fL (35.1-46.3); Red Blood Cell Count 2.71 M/mm3 (3.80-5.20)
[2021-05-18 05:02] LABS: BASOPHILS ABSOLUTE AUTO 0.02 K/mm3 (0.00-0.23); BASOPHILS PERCENT AUTO 0 % (0-2); White Blood Cell Count 61.13 K/mm3 (4.00-11.30)
[2021-05-18 05:23] LABS: Anion Gap 8 mmol/L (6-16); Blood Urea Nitrogen 58 mg/dL (8-24); Bun/Creatinine Ratio 31.2 (12.0-20.0); CO2, Blood 17 mmol/L (21-32); Calcium, Blood 8.5 mg/dL (8.5-10.1); Chloride, Blood 120 mmol/L (98-108); Creatinine, Blood 1.86 mg/dL (0.40-1.00); Glomerular Filtration Rate 26 (60-); Glucose, Blood 107 mg/dL (70-99); Magnesium, Blood 2.3 mg/dL (1.6-2.4); Phosphorus, Blood 4.4 mg/dL (2.5-4.9); Potassium, Blood 4.3 mmol/L (3.5-5.5); Sodium, Blood 145 mmol/L (136-145); Vancomycin, Random 21.7 ug/mL
--- NOTE | 2021-05-18 06:38 | NUR ---
PT REMAINS INTUBATED AND SEDATED. PROPOFOL AT 45MCG/KG/MIN, FENTANYL AT 50MCG/HR. NO PURPOSEFUL MOVEMENTS, BUT CONTINUES TO RESPOND TO PAIN AND GRIMACE WITH ORAL CARE. VENT CHANGED TO AC/VC 22/300/8/40%, SPO2 >92%, LUNGS CONTINUE TO BE COARSE TO CLEAR, LEFT SIDE MORE DIMINISHED THAN RIGHT AND RUB HEARD IN ALL LUNG [place] OCCASIONALLY. THICK, CHUNKY SECRETIONS THAT ARE [place]ON AND PINK WITH ETT SUCTION. HR IS SINUS TACH TO SR WITH OCCASIONAL PVC'S. RATE 90-110'S. LEVOPHED REMAINS ON AT 6MCG/MIN TO MAINTAIN MAP >65. 1+ EDEMA X4 EXTREMITIES. TUBE FEED HAS REMAINED OFF SINCE 2300 WHEN OG TUBE NOTED TO HAVE LEAKED. RESIDUALS HAVE REMAINED UNCHANGED AT 350ML, REFED, PT HAS HX OF ILEUS. ALVAREZ PATENT WITH YELLOW CLOUDY URINE OUT, ONLY 220ML THIS SHIFT. CRITICAL WBC COUNT OF 61.13 THIS AM, DR. HAMMOND NOTIFIED WITH NO NEW ORDERS GIVEN. SHE REMAINS A DNR, BUT FAMILY HAS REFUSED A DNR WRISTBAND. [facility].
--- NOTE | 2021-05-18 07:00 | NUR ---
ASSUME CARE: I have assumed care of this patient.
--- NOTE | 2021-05-18 07:37 | NUR ---
UPDATE: Acute onset of tachycardia up to 170's. Radha was paused and Dr. Andrez steinberg.
--- NOTE | 2021-05-18 08:37 | NUR ---
UPDATE: Pt self converted into sinus rhythm for a short period, then reconverted into a tachicardia. EKG obtained revealing afib with RVR. Dr. Bernstein called; RN instruced to give scheduled metroprolol.
--- NOTE | 2021-05-18 09:00 | NUR ---
UPDATE: Dr. Maguire at bedside assessing pt.
[2021-05-18 13:26] LABS: Anti-Xa UFH, PHA Monitoring 0.23 IU/mL; International Normalized Ratio 1.29; Prothrombin Time Results 13.3 Sec (9.7-11.5)
--- NOTE | 2021-05-18 17:51 | NUR ---
UPDATE: Dr. Maguire called and notified of 2-4 pauses on rn care manager. Verbal order to decrease amiodarone to 0.5 from 1.
--- NOTE | 2021-05-18 18:40 | NUR ---
SHIFT SUMMARY: Pt converted to Afib with RVR this morning after laying flat. She was given two 1 liter boluses of NS, 75 gm of albumin, and vasopressin started. Quad lumen central line place in left subclavian. Amiodarone and heparin were also started today, antibiotics were changed. Fentanyl still running at 50mcg/hr. Norepi currently titrated down to 3 with systolics in the mid to low 90's, amio at 0.5, heparin at 10. Vent settings AC/VC 16/300/8/30%. Only 100mls of urine out today; provider was notified.
--- NOTE | 2021-05-18 19:00 | NUR ---
ASSUMED CARE RECEIVED REPORT FROM OCTAVIA FOSTER AT 1900. PT REMAINS INTUBATED AND SEDATED WITH PROPOFOL AT 20MCG/KG/MIN AND FENTANYL AT 50MCG/HR. GRIMACING WITH ORAL CARE, OTHERWISE NOT ABLE TO FOLLOW COMMANDS OR SHOW PURPOSEFUL MOVEMENT. VENT IS AC/VC 18/300/8/30%, SPO2 >92%. LUNGS CONTINUE WITH RUB NOTED ON LEFT SIDE, VERY DIMINISHED ON RIGHT BASE. HR IS NOW AFIB WITH RATE IN 120'S. ON AMIODARONE GTT AT 0.5MG/HR. HEPARIN AT 10UNITS/KG/HR. LEVOPHED AT 3MCG/MIN AND VASOPRESSIN FOR BP SUPPORT, MAP >65 AND SYSTOLIC IN 90-LOW 100'S. TUBE FEED AT GOAL OF 35ML/HR. BT HYPOACTIVE. ALVAREZ HAS MINIMAL OUTPUT SHE IS OLIGURIC, PATENT AND DRAINING TO GRAVITY. NS AT 100ML/HR. SHE NOW HAS A CENTRAL LINE IN PLACE TO LEFT UPPER CHEST. POWEGLIDES REMAIN IN PLACE TO BILATERAL UPPER ARMS. ORDERS REVIEWED AND WILL TREAT PRESCRIBED.
--- NOTE | 2021-05-19 01:36 | NUR ---
MIDNIGHT REASSESSMENT RESIDUALS OF 150ML, REFED. RESTARTED TUBE FEED AT 10ML/HR. HYPOACTIVE BOWEL TONES, MILD ABDOMINAL DISTENTION. MILK OF MAG GIVEN PER TUBE.
[2021-05-19 03:51] LABS: BASOPHILS ABSOLUTE AUTO 0.18 K/mm3 (0.00-0.23); BASOPHILS PERCENT AUTO 0 % (0-2); EOSINOPHILS ABSOLUTE AUTO 0.01 K/mm3 (0.00-0.68); EOSINOPHILS PERCENT AUTO 0 % (0-6); Hematocrit 23.7 % (33.0-51.0); Hemoglobin 7.3 g/dL (11.5-16.0); IMMATURE GRAN PERCENT AUTO 3 % (0-1); LYMPHOCYTES ABSOLUTE AUTO 1.25 K/mm3 (0.84-5.20); LYMPHOCYTES PERCENT AUTO 2 % (21-46); MONOCYTES PERCENT AUTO 4 % (4-13); Mean Corpuscular HGB 27.5 pg (26.0-34.0); Mean Corpuscular HGB Conc 30.8 g/dL (31.5-36.5); Mean Corpuscular Volume 89 fL (80-100); Mean Platelet Volume 10.8 fL (9.1-12.4); NEUTROPHILS ABSOLUTE AUTO 48.22 K/mm3 (1.96-9.15); NEUTROPHILS PERCENT AUTO 91 % (41-73); NRBC ABSOLUTE 0.06 K/mm3 (0.00-0.02); NRBC Auto 0.1 /100 WBC (0.0-0.2); Platelet Count 387 K/mm3 (150-400); RDW Coefficient Variation 17.6 % (11.7-14.2); RDW Standard Deviation 57.1 fL (35.1-46.3); Red Blood Cell Count 2.65 M/mm3 (3.80-5.20)
[2021-05-19 03:59] LABS: White Blood Cell Count 53.36 K/mm3 (4.00-11.30)
[2021-05-19 04:06] LABS: Albumin, Blood 1.7 g/dL (3.4-5.0); Anion Gap 10 mmol/L (6-16); Blood Urea Nitrogen 66 mg/dL (8-24); Bun/Creatinine Ratio 31.6 (12.0-20.0); CO2, Blood 14 mmol/L (21-32); Calcium, Blood 8.3 mg/dL (8.5-10.1); Chloride, Blood 119 mmol/L (98-108); Creatinine, Blood 2.09 mg/dL (0.40-1.00); Glomerular Filtration Rate 23 (60-); Glucose, Blood 133 mg/dL (70-99); Phosphorus, Blood 5.5 mg/dL (2.5-4.9); Potassium, Blood 4.9 mmol/L (3.5-5.5); Sodium, Blood 143 mmol/L (136-145)
--- NOTE | 2021-05-19 04:22 | NUR ---
CALL TO DR. ASTUDILLO RE: PT'S HR INCREASING FROM 120'S TO 160'S FREQUENTLY STARTING AROUND 0300. LABS REPORTED TO DR. SATUDILLO DURING THIS TIME. 1L NS BOLUS ORDERED.
--- NOTE | 2021-05-19 06:27 | NUR ---
PT REMAINS INTUBATED AND SEDATED. PROPOFOL AND FENTANYL CONTINUED THE SAME RATE THROUGHOUT SHIFT. SHE ATTEMPTED TO OPEN EYES DURING REPOSITIONING, BUT DOES NOT FOLLOW COMMANDS OR RESPOND TO VOICE. SHE BITES DOWN DURING ORAL CARE. VENT REMAINS UNCHANGED, AC/VC 18/300/8/30%, SPO2 REMAINED ABOVE 92%. HR CONTINUES AFIB, WITH RATE NOTED TO INCREASE FROM 120'S TO 160'S MORE FREQUENT STARTING AT 0300. DR. ASTUDILLO ORDERED 1L BOLUS, AND RATE REMAINS IN 130-140'S. MAP MAINTAINED >65 WITH LEVOPHED AT 3, AND VASOPRESSIN REMAINS ON. PT NOTED TO BE WEEPING FROM EXTREMITITES AND EDEMA +2 THROUGHOUT ALL 4 EXTREMITIES. TUBE FEED REMAINS AT TRICKLE OF 10ML/HR DUE TO NO BOWEL MOVEMENT, HYPO BT, AND HIGH RESIDUALS. ALVAREZ DRAINED 150ML OUT, CLOUDY URINE WITH SEDIMENT AND BLOOD IN TUBING. AFEBRILE THROUGHOUT SHIFT. HEPARIN INCREASED TO 12 UNITS/KG/HR. WBC COUNT IMPROVED TO 53.36. CIRCULAR STUFFERLISA, CALLED DONOR LINE AND PT IS NOT A CANDIDATE. FINAL DISCHARGE STARTED. WILL REPORT TO ONCOMING SHIFT.
--- NOTE | 2021-05-19 07:00 | NUR ---
ASSUME CARE: I have assumed care of this patient.
--- NOTE | 2021-05-19 12:11 | NUR ---
UPDATE: PT CONVERTED OUT OF AFIB WITH RVR INTO NSR
--- NOTE | 2021-05-19 13:21 | NUR ---
UPDATE: Dr. Maguire notified of UOP; verbal order for 4mg bumex.
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
--- NOTE | 2021-05-19 21:25 | NUR ---
ASSUMED PT CARE AT 1915 PT INTUBATED AND SEDATED. PROPOFOL AT 20MCG/KG/MIN. VENT SETTINGS: AC/VC 18, VT 300, PEEP 6, FIO2 30%, RR 20'S, SPO2 90%. PT RESPONSIVE TO PAINFUL/NOXIOUS STIMULI. GRIMACES TO ORAL CARES, WITHDRAWALS WHEN NOXIOUS STIMULI APPLIED TO SOLES OF FEET; NEGATIVE BABINSKI. OPENS EYES TO PAINFUL STIMULI. NO TRACKING OR PURPOSEFUL MOVEMENTS; NO MOVEMENT NOTED TO EXTREMITIES. PROPOFOL PLACED ON STANDBY FOR SEDATION VACATION. PT HAS A CENTRAL LINE TO LEFT SUBCLAVIAN VEIN WITH BICARB INFUSING AT 75ML/HR, FENTANYL AT 50MCG/HR, NS TKO, LEVOPHED AT 3MCG/MIN, VASOPRESSIN AT 0.04 UNITS/MIN, AND HEPARIN AT 14 UNITS/KG/HR. BILATERAL UPPER EXTREMITY POWERGLIDES; ONE SALINE LOCKED, THE OTHER WITH AMIODARONE INFUSING AT 0.5 MG/MIN; PER DR. ASTUDILLO...CONTINUE AMIO GTT AT THIS TIME. TUBE FEED HAS BEEN PLACED ON STANDBY D/T HIGH RESIDUALS; THEREFORE, OG REMAINS CLAMPED. ABDOMEN IS VERY FIRM WITH HYPOACTIVE BT IN RLQ; OTHERWISE, ABSENT. PT IS VERY EDEMATOUS WITH WEEPING NOTED TO OLD PUNCTURE SITE IN L HAND. BRUISING NOTED TO R LATERAL SIDE WITH DIFFUSE BRUISING DOWN TO SUPRA PUBIC REGION/GROIN. PT HAS A SKIN TEAR ON R HAND THAT IS COVERED WITH A FOAM DRESSING. ANAL FISSURE WITH DARK PURPLE/BLUE SURROUNDING TISSUE NOTED TO BUTTCRACK WITH FOAM DRESSING IN PLACE WELL; VERY FRAGILE TISSUE. ALVAREZ CATHETER IS PATENT AND DRAINING CLOUDY TEA COLORED URINE TO GRAVITY. PER REPORT PT HAS HAD MINIMAL URINE OUTPUT; WILL CONTINUE TO MONITOR CLOSELY. SEE SHIFT SUMMARY FOR FURTHER DETAILS.
[2021-05-20 03:29] LABS: BASOPHILS ABSOLUTE AUTO 0.11 K/mm3 (0.00-0.23); BASOPHILS PERCENT AUTO 0 % (0-2); EOSINOPHILS ABSOLUTE AUTO 0.04 K/mm3 (0.00-0.68); EOSINOPHILS PERCENT AUTO 0 % (0-6); Hematocrit 20.9 % (33.0-51.0); Hemoglobin 6.6 g/dL (11.5-16.0); IMMATURE GRAN ABSOLUTE AUTO 1.26 K/mm3 (0.00-0.10); IMMATURE GRAN PERCENT AUTO 3 % (0-1); LYMPHOCYTES ABSOLUTE AUTO 0.89 K/mm3 (0.84-5.20); LYMPHOCYTES PERCENT AUTO 2 % (21-46); MONOCYTES ABSOLUTE AUTO 1.26 K/mm3 (0.16-1.47); MONOCYTES PERCENT AUTO 3 % (4-13); Mean Corpuscular HGB 27.5 pg (26.0-34.0); Mean Corpuscular HGB Conc 31.6 g/dL (31.5-36.5); Mean Corpuscular Volume 87 fL (80-100); Mean Platelet Volume 10.7 fL (9.1-12.4); NEUTROPHILS ABSOLUTE AUTO 41.73 K/mm3 (1.96-9.15); NEUTROPHILS PERCENT AUTO 92 % (41-73); NRBC ABSOLUTE 0.06 K/mm3 (0.00-0.02); NRBC Auto 0.1 /100 WBC (0.0-0.2); Platelet Count 372 K/mm3 (150-400); RDW Coefficient Variation 17.4 % (11.7-14.2); RDW Standard Deviation 55.1 fL (35.1-46.3); White Blood Cell Count 45.29 K/mm3 (4.00-11.30)
[2021-05-20 03:47] LABS: Albumin, Blood 1.8 g/dL (3.4-5.0); Anion Gap 10 mmol/L (6-16); Blood Urea Nitrogen 69 mg/dL (8-24); CO2, Blood 18 mmol/L (21-32); Calcium, Blood 8.2 mg/dL (8.5-10.1); Chloride, Blood 112 mmol/L (98-108); Glomerular Filtration Rate 21 (60-); Glucose, Blood 133 mg/dL (70-99); Phosphorus, Blood 4.9 mg/dL (2.5-4.9); Potassium, Blood 4.1 mmol/L (3.5-5.5); Sodium, Blood 140 mmol/L (136-145)
--- NOTE | 2021-05-20 06:07 | NUR ---
END OF SHIFT SUMMARY NO SIGNIFICANT CHANGES. PT REMAINED OFF PROPOFOL FOR MOST OF NIGHT; HOWEVER, RESUMED AROUND 0400 D/T INCREASED RESPIRATIONS AND COUGHING EPISODES CAUSING PT TO VAGAL AND CARISA TO THE 50'S. PT RESTARTED ON PROPOFOL AT 10MCG/KG/MIN. PRIOR TO PROPOFOL BEING RESTARTED PT REMAINED UNAROUSABLE, GRIMACED TO PAINFUL STIMULI, NORMAL PLANTAR REFLEX WHEN SOLES OF FEET WERE STIMULATED; HOWEVER, NO PURPOSEFUL MOVEMENT. PT ALSO HAS A NOTED UPWARD GAZE, NO TRACKING, BUT BLINK REFLEX PRESENT. PT HAS BEEN OFF VASOPRESSIN AND LEVOPHED SINCE APPROXIMATELY 0300 WITH SBP'S REMAINING IN THE 90'S AND MAP'S >65 MMHG. AMIODARONE CONTINUES AT 0.5MG/MIN AND HEPARIN AT 16 UNITS/KG/HR. FENTANYL CONTINUES AT 50MCG/HR. TUBE FEED REMAINS OFF WITH RESIDUAL OF 250CC THIS AM. PT MEDICATED WITH MILK OF MAG D/T NO BM FOR A FEW DAYS; ABDOMEN REMAINS VERY FIRM WITH ABSENT BOWEL TONES. MINIMAL URINE OUTPUT OF 150CC THIS SHIFT; REMAINS TEA COLORED AND CLOUDY. VENT SETTINGS REMAIN UNCHANGED. NO FAMILY IN TO VISIT THIS SHIFT, NOR CALL FOR UPDATES. WILL CONTINUE TO MONITOR UNTIL REPORT IS HANDED OFF TO ONCOMING RN.
--- NOTE | 2021-05-20 08:00 | NUR ---
PT REMAINS INTUBATED, SEDATED, AND RESTRAINED. PT GIVEN SEDATION VACATION X 30 MINUTES. DURING THAT TIME, PT OPENS HER EYES. UPWARD GAZE NOTED. PT HAS CORNEAL REFLEX. PUPILS 4 MM AND SLUGGISH. MINIMAL COUGH AND NO GAG REFLEX. PT GRIMACES TO PAINFUL STIMULI. NO SPONTANEOUS MOVEMENT OF EXTREMITIES NOTED. PROPOFOL RESUMED @ 10 MCG/KG/MIN RR 30'S. ECG SHOWS SR. PT BRADYCARDIC WITH TURNING AND SUCTIONING (40-50'S). MAP TRENDING 60-65-NO PRESSORS AT THIS TIME. LUNGS DIMINISHED THROUGH OUT. PT UTILIZING ACCESSORY MUSCLES AND ABDOMEN TO BREATH. SATS TO 88% WITH REPOSITIONING. NO ETT SECRETIONS WITH SUCTIONING. ETT TO VENT: AC 18, 300, 6, 35%. ABDOMEN DISTENDED, FIRM, AND NO BT'S AUSCULTATED. OGTF HELD DUE TO HIGH RESIDUALS. PT HAS NOT HAD A BM FOR SEVERAL DAYS. BOWEL PROTOCOL HAS BEEN INITIATED. SKIN IS PALE AND FRAIL. PITTING EDEMA NOTED TO EXTREMITIES AND FROM TORSO DOWN. SCATTERED BRUISED NOTED TO RIGHT SIDE. RIGTH HAND WITH SKIN TEAR-FOAM DRESSING IN PLACE. REMOVED DRESSING BRIEFLY TO CHECK WOUND AND NO NOTED DRAINAGE OR SIGNS OF INFECTION. LEFT HAND WEEPING AND FOAM DRESSING IN PLACE. COCCYX HAS A SMALL FISSURE TO THE GLUTEAL FOLD. SURROUNDING SKIN IS PURPLE THROUGH OUT THE GLUTEAL FOLD. NEW FOAM DRESSING PLACED AND PT REPOSITIONED TO COMFORT ON LEFT SIDE. ALVAREZ TO BSD WITH APROX 30 CC OR DARK, CHETAN URINE WITH SEDIMENT.
--- NOTE | 2021-05-20 09:07 | NUR ---
DR. ASTUDILLO GIVEN FULL UPDATE. PT TO HAVE CT OF HEAD AND ABDOMEN WITHOUT CONTRAST TODAY. 1 UNIT PRBC'S INITIATED. HEPARIN DRIP DISCONTINUED PER DR. ASTUDILLO. URINE OUTPUT REMAINS POOR. ANTICIPATE POSSIBLE TRIALYSIS CATHETER PLACEMENT LATER TODAY.
--- NOTE | 2021-05-20 09:44 | NUR ---
SPOKE WITH PT DAUGHTER KASSI ON THE PHONE. FULL UPDATE GIVEN. PT DAUGHTER AWARE THAT ECHO IS COMPLETE AND THAT PT WILL BE HAVING CT SCAN OF HEAD AND ABDOMEN LATER TODAY. ALSO, PT DAUGHTER AWARE THAT A TRIALYSIS CATHETER WILL MOST LIKELY NEED TO BE PLACED TODAY. PT DAUGHTER VERBALIZED THAT SHE WOULD INDEED CONSENT TO THAT PROCEDURE.
--- NOTE | 2021-05-20 10:00 | NUR ---
HR TO 40'S WITH REPOSITIONING. SATS DOWN TO 88%-SUCTION PRODUCTIVE OF MODERATE AMOUNT OF THICK, YELLOW/BLOOD TINGED SECRETIONS. PT HR RETURNED TO 70'S AFTER SEVERAL MINUTES.
--- NOTE | 2021-05-20 10:49 | NUR ---
Echocardiogram completed.
--- NOTE | 2021-05-20 11:30 | NUR ---
CT OF HEAD, ABDOMEN, AND PELVIS IS COMPETE. PT TOLERATED WELL. NO ACUTE NEURO CHANGES. ECG SHOWS SR WITH RATE 60-70'S. PT HR STILL DECREASED TO 40-50'S WITH SUCTIONING. LUNGS ARE COARSE AND WHEEZY TO UPPER LOBES AND DIMINISHED IN THE BASES. SATS>90% ON FIO2 35%. MODERATE AMOUNT OF THICK, YELLOW/RED TINGED SECRETIONS SUCTIONED FROM ETT. NGT REMAINS CLAMPED. ABDOMEN REMAINS DISTENDED, FIRM, WITH ABSENT BT'S. ALVAREZ WITH SCANT TEA COLORED URINE WITH SEDIMENT. PT DAUGHTER KASSI IN FOR VISIT. DR. ASTUDILLO TO REVIEW TEXT RESULTS WITH HER PENDING CT RESULTS. BILATERAL FOAM DRESSING TO HANDS C/D/I. COCCYX DRESSING REMAINS C/D/I-PT REPOSITIONED TO COMFORT ON LEFT SIDE.
--- NOTE | 2021-05-20 12:45 | NUR ---
DR. ASTUDILLO SPOKE WITH PT DAUGHTER KASSI AT LENGTH REGARDING PLAN OF CARE. KASSI VERBALIZES THAT "I DON'T WANT HER TO SUFFER FOR A LONG TIME. IF SHE IS NOT BETTER IN A WEEK, I'D RATHER MAKE HER COMFORTABLE." PLAN FOR PLACEMENT OF TRIALYSIS CATHETER LATER TODAY.
[2021-05-20 13:02] LABS: Hematocrit 24.2 % (33.0-51.0); Hemoglobin 7.9 g/dL (11.5-16.0)
--- NOTE | 2021-05-20 14:15 | NUR ---
MAP TRENDING 50'S. LEVOPHED DRIP RESTARTED-TITRATING TO MAP 60-65.
--- NOTE | 2021-05-20 15:13 | NUR ---
TRIALYSIS CATHETER PLACED TO LEFT FEMORAL VEIN. DR. MONTIEL HAS BEEN CONSULTED. ORDER PLACED IN THE COMPUTER AND MESSAGE LEFT WITH JULIANA AT DR. MONTIEL'S OFFICE. OREN IN DIALYSIS AWARE OF PT.
--- NOTE | 2021-05-20 15:34 | NUR ---
DR. MONTIEL IN TO SEE PT. STAT RENAL PANEL, MG+, AND ABG ORDERED.
[2021-05-20 15:52] LABS: PO2 Arterial 69.2 mmHg (80-100); pH Blood Arterial 7.21 (7.35-7.45)
--- NOTE | 2021-05-20 16:00 | NUR ---
PT OPENS EYES SPONTANEOUSLY, BUT DOES NOT TRACK. RIGHT, UPWARD GAZE CONTINUES. ECG CONTINUES SR IN THE 60-70'S. MAP 65-70 WITH LEVOPHED @ 4 MCG/MIN. LUNGS COARSE AND WHEEZY TO UPPER LOBES R>L AND DIMINISHED IN THE BASES. SATS>90% ON FIO2 35% ETT SUCTION PRODUCTIVE OF MODERATE AMOUNT OF THICK, PINK SECRETION. OGT TO LIS WITH SMALL AMOUNT OF CLEAR, WATERY SECRETIONS. ABDOMEN REMAINS DISTENDED, FIRM, AND NO BT'S AUSCULTATED. ALVAREZ WITH MINIMAL URINE OUTPUT. WILL CALL RENAL PANEL, MG+, AND ABG RESULTS TO DR. MONTIEL. ANTICIPATE DIALYSIS LATER THIS EVENING.
[2021-05-20 16:21] LABS: Albumin, Blood 1.7 g/dL (3.4-5.0); Anion Gap 10 mmol/L (6-16); Blood Urea Nitrogen 70 mg/dL (8-24); Bun/Creatinine Ratio 28.7 (12.0-20.0); CO2, Blood 18 mmol/L (21-32); Calcium, Blood 8.4 mg/dL (8.5-10.1); Chloride, Blood 109 mmol/L (98-108); Creatinine, Blood 2.44 mg/dL (0.40-1.00); Glomerular Filtration Rate 19 (60-); Glucose, Blood 128 mg/dL (70-99); Magnesium, Blood 2.2 mg/dL (1.6-2.4); Phosphorus, Blood 5.5 mg/dL (2.5-4.9); Potassium, Blood 4.2 mmol/L (3.5-5.5); Sodium, Blood 137 mmol/L (136-145)
--- NOTE | 2021-05-20 16:30 | NUR ---
DR. MONTIEL UPDATED AND GIVEN RENAL PANEL, MG+, AND ABG RESULTS-ORDERS GIVEN.
--- NOTE | 2021-05-20 17:30 | NUR ---
PT GIVEN ALBUMIN 12.5 %, BUMEX 4 MG IVP X 1. BICARB 1 AMP GIVEN IVP X 1. SODIUM BICARB DRIP CHANGED TO 150 MEQ/1000CC WITH RATE 150 CC/HR-SEE EMAR. URINE OUTPUT 50 CC FOR THE SHIFT.
[2021-05-21 03:44] LABS: Hematocrit 22.8 % (33.0-51.0); Hemoglobin 7.7 g/dL (11.5-16.0)
[2021-05-21 04:00] LABS: Albumin, Blood 1.5 g/dL (3.4-5.0); Anion Gap 10 mmol/L (6-16); Blood Urea Nitrogen 67 mg/dL (8-24); Bun/Creatinine Ratio 26.4 (12.0-20.0); CO2, Blood 24 mmol/L (21-32); Calcium, Blood 8.1 mg/dL (8.5-10.1); Chloride, Blood 103 mmol/L (98-108); Creatinine, Blood 2.54 mg/dL (0.40-1.00); Glomerular Filtration Rate 18 (60-); Glucose, Blood 150 mg/dL (70-99); Magnesium, Blood 1.9 mg/dL (1.6-2.4); Phosphorus, Blood 5.1 mg/dL (2.5-4.9); Potassium, Blood 3.8 mmol/L (3.5-5.5); Sodium, Blood 137 mmol/L (136-145)
--- NOTE | 2021-05-21 07:12 | NUR ---
SHIFT SUMMARY PATIENT HAD ONE EPISODE OF BRADYCARDIA THIS SHIFT WITH HR DIPPING TO 57 DURING LINEN CHANGE AFTER BATH WITH QUICK RECOVERY. PATIENT REMAINS NONPURPOSEFUL WITH RESPONSES, FIXED GAZE SLIGHTLY UPWARD. LEVOPHED DECREASED TO 2MCG/KG/MIN AND PROPOFOL INCREASED TO 15MCG/KG/MIN. NO OTHER CHANGES DURING SHIFT. REPORT GIVEN TO OCTAVIA RASMUSSEN.
--- NOTE | 2021-05-21 08:00 | NUR ---
PT REMAINS INTUBATED, SEDATED, AND RESTRAINED. PT GIVEN SEDATION VACATION X 30 MINUTES. PT OPENS EYES, BUT DOES NOT TRACK. PT NOT MOVING EXTREMITIES OR FOLLOWING COMMANDS. NO GAG, MINIMAL COUGH REFLEX. PUPILS 4 MM AND BRISK THIS AM. PROPOFOL RESUMED @ 20 MCG/KG/MIN RR 30'S. ECG SHOWS SR WITH RATE 60'S. MAP 65-70 ON LEVOPHED @ 2 MCG/MIN. GENERALIZED PITTING EDEMA CONTINUES. PARTICULARLY IN THE HAND WHICH ARE WEEPING. NEW FOAM DRESSINGS PLACED TO BOTH HANDS. LUNGS COARSE AND WHEEZY TO UPPER LOBES AND DIMINISHED IN THE BASES. ETT TO VENT AC 18, 300, 5, 35% SATS>90% MINIMAL ETT SECRETIONS WITH SUCTIONING. OGT CLAMPED AFTER AM MEDS GIVEN. ABDOMEN REMAINS DISTENDED, FIRM, AND BT'S ARE ABSENT. STILL NO BM. ALVAREZ WITH 15 CC OF DARK, YELLOW URINE WITH SEDIMENT. BRUISING TO RIGHT SIDE CONTINUES.DRESSING TO COCCYX C/D/I.REMOVED DRESSING BRIEFLY AND THE FISSURE TO THE GLUTEAL FOLD IS UNCHANGED FROM 05/20/21.
--- NOTE | 2021-05-21 10:00 | NUR ---
ETT PULLED BACK 2 CM BY RT-PER DR. ASTUDILLO ORDERS. RT SUCTIONED LARGE AMOUNT OF PURULENT SECRETIONS FROM ETT-SPUTUM SENT.
--- NOTE | 2021-05-21 12:00 | NUR ---
NO ACUTE NEURO CHANGES. PT REMAINS SEDATED ON PROPOFOL DRIP @ 20 MCG/KG/MIN AND FENTANYL @ 50 MCG/HR. PT OPENS EYES WITH NOXIOUS STIMULI, BUT STILL NOT TRACKING. HR 70'S. AMIODARONE DRIP ON STANDBY PER DR. ASTUDILLO VERBAL ORDER. MAP TRENDING 65-70'S ON LEVOPHED @ 2 MCG/MIN. PT STILL HAS NO BT'S AND NO BM. MED WITH REGLAN 10 MG IVP X 1 AND SUPPOSITORY GIVEN-SEE EMARJaron ALVAREZ WITH ONLY 50 CC URINE OUTPUT DESPITE INCREASED DOSE OF BUMEX.
--- NOTE | 2021-05-21 13:38 | NUR ---
PT DAUGHTER IN FOR VISIT. UPDATE GIVEN-DISCUSSED PLAN OF CARE.
--- NOTE | 2021-05-21 14:16 | NUR ---
Spiritual Care Visit Pt. is in bed and is non-responsive on a ventilator. Pts. daughter is present. Re-establish rapport. Daughter speaks about how there has been little change in pts. health. Pts. daughter is unsettled by the roll she is playing whether to go to comfort care, when some of her vital are inrpoving. Listen empathetically. Facilitate a life review. Prayed for pt. and family. Pts. daughter verbally expresses gratitude for the spiritual care visit.
--- NOTE | 2021-05-21 16:00 | NUR ---
PT RESTING QUIETLY ON VENT WITH PROPOFOL @ 20 MCG/KG/MIN AND FENTANYL CONTINUOUS @ 50 MCG/HR. PT OPENS HER EYES WITH ORAL CARE, REPOSITIONING, AND NOXIOUS STIMULI. PT STILL NOT TRACKING. NO VENT CHANGES. PT MAINTAINS SATS>90% ON FIO2 35%. PT HAD SMALL, BROWN, HARD BM. PIVOT 1.5 STARTED @ 10 CC/HR. URINE OUTPUT [address] ASTUDILLO A[address] DR. ASTUDILLO SPOKE WITH DR. MONTIEL AND THE PLAN IS TO DIALYSIS THIS EVENING.
[2021-05-22 03:36] LABS: BASOPHILS ABSOLUTE AUTO 0.13 K/mm3 (0.00-0.23); BASOPHILS PERCENT AUTO 0 % (0-2); EOSINOPHILS ABSOLUTE AUTO 0.17 K/mm3 (0.00-0.68); EOSINOPHILS PERCENT AUTO 0 % (0-6); Hematocrit 21.1 % (33.0-51.0); Hemoglobin 7.1 g/dL (11.5-16.0); IMMATURE GRAN PERCENT AUTO 2 % (0-1); LYMPHOCYTES ABSOLUTE AUTO 0.97 K/mm3 (0.84-5.20); LYMPHOCYTES PERCENT AUTO 2 % (21-46); MONOCYTES ABSOLUTE AUTO 1.21 K/mm3 (0.16-1.47); MONOCYTES PERCENT AUTO 3 % (4-13); Mean Corpuscular HGB Conc 33.6 g/dL (31.5-36.5); Mean Corpuscular Volume 83 fL (80-100); Mean Platelet Volume 10.8 fL (9.1-12.4); NEUTROPHILS ABSOLUTE AUTO 37.18 K/mm3 (1.96-9.15); NEUTROPHILS PERCENT AUTO 92 % (41-73); Platelet Count 350 K/mm3 (150-400); RDW Coefficient Variation 16.5 % (11.7-14.2); RDW Standard Deviation 49.4 fL (35.1-46.3); Red Blood Cell Count 2.54 M/mm3 (3.80-5.20); White Blood Cell Count 40.56 K/mm3 (4.00-11.30)
[2021-05-22 03:53] LABS: International Normalized Ratio 1.28; Prothrombin Time Results 13.2 Sec (9.7-11.5)
[2021-05-22 03:56] LABS: Albumin, Blood 1.7 g/dL (3.4-5.0); Albumin/Globulin Ratio 0.5 (0.8-1.8); Alk Phos 157 U/L (50-136); Anion Gap 8 mmol/L (6-16); Aspartate Aminotrans (AST/SGOT 17 U/L (12-37); Bilirubin, Direct 0.4 mg/dL (0.0-0.3); Bilirubin, Indirect 0.2 mg/dL (0.1-0.7); Bilirubin, Total 0.6 mg/dL (0.1-1.0); Blood Urea Nitrogen 47 mg/dL (8-24); Bun/Creatinine Ratio 23.3 (12.0-20.0); CO2, Blood 30 mmol/L (21-32); Calcium, Blood 8.4 mg/dL (8.5-10.1); Chloride, Blood 99 mmol/L (98-108); Creatinine, Blood 2.02 mg/dL (0.40-1.00); Globulin, Blood 3.2 g/dL (2.2-4.0); Glomerular Filtration Rate 24 (60-); Glucose, Blood 104 mg/dL (70-99); Magnesium, Blood 2.1 mg/dL (1.6-2.4); Phosphorus, Blood 3.7 mg/dL (2.5-4.9); Potassium, Blood 3.5 mmol/L (3.5-5.5); Sodium, Blood 137 mmol/L (136-145); Total Protein, Blood 4.9 g/dL (6.4-8.2)
[2021-05-22 04:00] LABS: Alanine Aminotransfer (ALT/SGP <6 U/L (12-78)
--- NOTE | 2021-05-22 06:35 | NUR ---
SHIFT SUMMARY: NEURO - Pt responds to painful stimuli with eye opening and tachypnea. Does not move any extremities to pain. Pt still has an upward gaze but PERRLA at 3. Propofol was turned off at 0500 for SBT - pt became tachycardic and tachypnic unable to successfully do a SAT/SBT. RESP - Failed SBT attempt at 0500 became tachypnic and unable to hold volumes. Vent settings are AC/VC 18/300/5/40%. Small secretions yellow thick from ETT. Lung sounds are coarse with exp and ins wheezing. CARDIAC - BP stable with low dose Levophed. NSR with HR 70-80. Edematous. Afebrile. GI/: TF at trickle feeding (10mL/hr). No BM. Low UO but had dialysis last night, per supervisor [employer] 1L out during the session. INTEG: Weeping bilateral hands, redressed and cleansed. Coccyx was also cleansed and redressed. q2h turns. Infusions: propofol, fent TANK INSULATOR RUBBER, normal saline, levophed
--- NOTE | 2021-05-22 07:15 | NUR ---
BEGINNING OF SHIFT Assumed care of pt from Miryam DUDLEY. Pt sedated with propofol at 20 mcg/kg/min, fentanyl 50 mcg/hr. Responsive to painful stimulus. Cough present. Gag absent. Does not withdraw from painful stimulus BUE. Gross movement noted to BLE with stimulation. 7.[address], 21 cm at gums. Vent settings ACVC 18/300/5/40%. SpO2 90% or greater. Actual RR 23. OG tube with feed and flush per orders. 30 mL residual measured. Smear BM. Catheter secured to bed, patent and draining.
[2021-05-22 08:11] LABS: HBSAG SCREEN Negative (Negative); HCV AB <0.1 (0.0-0.9); HEP A AB, IGM Negative (Negative); HEP B CORE AB, IGM Negative (Negative)
[2021-05-22 11:45] LABS: Influenza A, PCR NEGATIVE (NEGATIVE); Influenza B, PCR NEGATIVE (NEGATIVE); Resp Syncytial Virus, PCR NEGATIVE (NEGATIVE); SARS-Cov-2 (COVID-19) PCR, MMC NEGATIVE (NEGATIVE)
[2021-05-22 12:10] LABS: Hematocrit 23.2 % (33.0-51.0); Hemoglobin 7.7 g/dL (11.5-16.0)
--- NOTE | 2021-05-22 12:16 | NUR ---
Bilateral hand dressings changed. Serous drainage from blisters on back of hands bilaterally.
--- NOTE | 2021-05-22 12:29 | NUR ---
PT IN ICU ROOM FOR PROCEDURE. VENTED WITH EDUCATIONAL PSYCHOLOGIST MONITORING SEDATION. History, Chart, Medications and Allergies reviewed before start of procedure.EDUCATIONAL PSYCHOLOGIST confirms NPO status and FAMILY/POA agrees with scheduled surgery.
--- NOTE | 2021-05-22 12:34 | NUR ---
05/22/21 1234 [place] History, Chart, Medications and Allergies reviewed before start of procedure.PT VENTED, CHURN DRILLER TO MONITOR SEDATION T/O PROCEDURE.
--- NOTE | 2021-05-22 13:29 | NUR ---
Bronchoscopy completed with assist from Respiratory Care and Day Surgery. Pt received [address] Maguire as preprocedural sedation. Pt tolerated procedure well. Propofol at 20 mcg/kg/min, levophed 8 mcg/min.
--- NOTE | 2021-05-22 13:30 | NUR ---
Worsening LUE edema. Dr Maguire notified. Plan to obtain ultrasound to r/o dvt.
--- NOTE | 2021-05-22 14:15 | NUR ---
Sacral wound dressing removed. Stage 3 pressure ulcer underneath. Cleansed with sterile saline. Photographs obtained to update. New dressing placed.
--- NOTE | 2021-05-22 18:23 | NUR ---
SUMMARY Neuro: Currently sedated with 20 mcg/kg/min propofol and 50 mcg/hr fentanyl. Received 2 hour sedation interruption from propofol; pt opened eyes spontaneously but did not follow commands, upper extremities did not withdraw from pain. Musculoskeletal: Gross movement noted to BLE in response to stimuluation. No movement noted to BUE, therefore restraints removed. Repositioned Q2H. Dependent care for ADLs. Respiratory: ACVC 18/300/5/40%. SpO2 90% or greater. Thick, frothy white sputum suctioned from ETT. Lungs coarse with expiratory wheezes in all schreiber. 7.5 cm ETT, 21 cm at gums. Cardiac: SR per monitor. BP stable with 4 mcg/min levophed. Weeping edema bilat hands. 1+ radial, pedal, posttibial pulses. GI: Increasing residuals t/o shift. Most recent residual measured and reinstilled 220 mL. Plan to give reglan and reassess. Smear BM this shift. : Lyons catheter patent and draining with 100 mL urine output this shift. Skin: Bilat hand dressings changed. Sacral wound photographed and new dressing placed. Psychosocial: Pt's daughter and neice visited today, received update from Dr Maguire.
--- NOTE | 2021-05-22 21:55 | NUR ---
ASSUMED CARE RECEIVED REPORT FROM OCTAVIA LOPEZ AT 1900. PT IS INTUBATED AND SEDATED WITH PROPOFOL AT 20MCG/KG/MIN AND FENTANYL 50MG/HR FOR PAIN D/T MULTIPLE RIGHT RIB FRACTURES. SHE RESPONDS TO PAIN, GRIMACING WITH ORAL CARE AND OPENS EYES WITH REPOSITIONING, OTHERWISE NO PURPOSEFUL MOVEMENTS AND DOES NOT FOLLOW COMMANDS. VENT IS AC/VC 18/300/5/40%, HOWEVER ACTUAL RESPIRATORY RATE IS IN 20'S. LUNGS ARE COARSE/MOIST WITH WHEEZE THROUGHOUT. SMALL SECRETIONS WITH ETT SUCTIONING, WHITE IN COLOR. HR IS SR WITH RATE IN 80'S. LEVOPHED AT 4MCG/MIN TO MAINTAIN MAP >65, SBP IS IN 90-100'S. PIVIOT TF AT 10ML/HR WITH Q4H H2O FLUSH. ABDOMEN IS FIRM, BT X4 QUADRANTS. ALVAREZ PATENT, DRAINING MINIMAL URINE, PT HAD DIALYSIS TODAY. SHE IS VERY EDEMATOUS THROUGHOUT, WITH WEEPING FROM BILATERAL HANDS, DRESSINGS IN PLACE. AFEBRILE. ORDERS REVIEWED, WILL TREAT PRESCRIBED.
--- NOTE | 2021-05-22 22:42 | NUR ---
PT'S DAUGHTER, KASSI, UPDATED ON PT CONDITION.
[2021-05-23 04:33] LABS: Hemoglobin 6.6 g/dL (11.5-16.0); Mean Corpuscular HGB 27.8 pg (26.0-34.0); Mean Corpuscular Volume 84 fL (80-100); Mean Platelet Volume 10.9 fL (9.1-12.4); NRBC ABSOLUTE 0.02 K/mm3 (0.00-0.02); NRBC Auto 0.1 /100 WBC (0.0-0.2); Platelet Count 363 K/mm3 (150-400); RDW Coefficient Variation 16.9 % (11.7-14.2); RDW Standard Deviation 50.7 fL (35.1-46.3); Red Blood Cell Count 2.37 M/mm3 (3.80-5.20); White Blood Cell Count 34.27 K/mm3 (4.00-11.30)
[2021-05-23 04:55] LABS: Albumin, Blood 2.2 g/dL (3.4-5.0); Anion Gap 9 mmol/L (6-16); Blood Urea Nitrogen 39 mg/dL (8-24); Bun/Creatinine Ratio 20.6 (12.0-20.0); CO2, Blood 29 mmol/L (21-32); Calcium, Blood 8.8 mg/dL (8.5-10.1); Chloride, Blood 102 mmol/L (98-108); Creatinine, Blood 1.89 mg/dL (0.40-1.00); Glomerular Filtration Rate 26 (60-); Glucose, Blood 99 mg/dL (70-99); Phosphorus, Blood 3.3 mg/dL (2.5-4.9); Potassium, Blood 3.6 mmol/L (3.5-5.5); Sodium, Blood 140 mmol/L (136-145)
[2021-05-23 06:09] LABS: BAND PERCENT MAN 9 % (0-8); BASOPHILS PERCENT MAN 0 % (0-2); EOSINOPHILS ABSOLUTE MAN 0.34 K/mm3 (0.00-0.68); EOSINOPHILS PERCENT MAN 1 % (0-6); LYMPHOCYTES ABSOLUTE MAN 1.37 K/mm3 (0.84-5.20); LYMPHOCYTES PERCENT MAN 4 % (21-46); MONOCYTES ABSOLUTE MAN 1.02 K/mm3 (0.16-1.47); MONOCYTES PERCENT MAN 3 % (4-13); NEUTROPHILS ABSOLUTE MAN 31.52 K/mm3 (1.96-9.15); SEG NEUTROPHILS PERCENT MAN 83 % (41-73); TOTAL CELLS COUNTED 100
--- NOTE | 2021-05-23 06:25 | NUR ---
PT REMAINS INTUBATED AND SEDATED WITH PROPOFOL AND FENTANYL. PT'S HEMOGLOBIN CAME BACK AT 6.6, DR. HAMMOND CALLED AND ORDERS TO INFUSE ONE UNIT PRBC. DR. MONTIEL AT BEDSIDE AT 0600 AND STATED THE UNIT OF BLOOD MAY BE INFUSED WITH DIALYSIS. OTHERWISE, NO ACUTE CHANGES THIS SHIFT. OPENS EYES WITH REPOSITIONING AND GRIMACES WITH ORAL CARE, UNABLE TO FOLLOW COMMANDS, NO PURPOSEFUL MOVEMENTS. LEVOPHED REMAINS ON AT 4MCG/MIN, MAP MAINTAINED >65. HR CONTINUES SR, RATE IN 80'S. VENT SETTINGS UNCHANGED AT AC/VC 18/300/5/45%, SPO2 >90%. TUBE FEED REMAINS AT 10ML/HR, RESIDUALS ALL <200ML. NO BOWEL MOVEMENT. ALVAREZ WITH MINIMAL OUTPUT OF 50ML CLOUDY, CHETAN URINE. BEDBATH COMPLETE THIS SHIFT. WILL REPORT TO ONCOMING SHIFT WHEN AVAILABLE.
--- NOTE | 2021-05-23 07:15 | NUR ---
Assumed care of pt at 0700. Report received from Lorelei DUDLEY. Pt receiving propofol 20 mcg/kg/min and fentanyl 50 mcg/hr for sedation. 7.5 cm ETT, 21 cm at gums. BP stable with 4 mcg/min levophed. SpO2 90% or greater with vent settings ACVC 18/300/5/45%.
--- NOTE | 2021-05-23 07:45 | NUR ---
Discussed bowel care with Dr Gaytan. Provider states plan to escalate bowel care.
--- NOTE | 2021-05-23 09:15 | NUR ---
Dr Roman and Dr Gaytan in to see patient. Plan of care discussed. Pt currently asynchronous with vent, provider aware.
[2021-05-23 11:51] LABS: Hemoglobin 9.1 g/dL (11.5-16.0)
--- NOTE | 2021-05-23 14:55 | NUR ---
Pt's daughter at bedside to visit. Received update from Dr Roman over telephone prior to arrival. Denies any additional questions aat this time.
--- NOTE | 2021-05-23 19:33 | NUR ---
SUMMARY Neuro: Currently sedated with 20 mcg/kg/min propofol and 50 mcg/hr fentanyl. Received 3 hour sedation interruption from propofol; pt opened eyes spontaneously but did not follow commands, upper extremities did not withdraw from pain. Musculoskeletal: Gross movement noted to BLE in response to stimuluation. No movement noted to BUE. Repositioned Q2H. Dependent care for ADLs. Respiratory: ACVC 18/300/5/45%. SpO2 90% or greater. Thick, frothy white sputum suctioned from ETT. Lungs coarse with expiratory wheezes in all schreiber. 7.5 cm ETT, 21 cm at gums. Cardiac: SR per monitor. BP stable with 4 mcg/min levophed. Weeping edema bilat hands. 1+ radial, pedal, posttibial pulses. GI: Most recent residual measured and reinstilled 60 mL. Plan to give reglan and reassess. Miralax and ducolax suppository given in addition to routine bowel care regimen today. No BM. : Lyons catheter patent and draining with 70 mL urine output this shift. Skin: Unchanged from initial assessment. Psychosocial: Pt's daughter visited today. Received update from Dr Roman.
[2021-05-24 03:41] LABS: Hematocrit 24.7 % (33.0-51.0); Hemoglobin 8.1 g/dL (11.5-16.0)
[2021-05-24 03:58] LABS: Albumin, Blood 1.8 g/dL (3.4-5.0); Anion Gap 9 mmol/L (6-16); Blood Urea Nitrogen 43 mg/dL (8-24); Bun/Creatinine Ratio 21.7 (12.0-20.0); CO2, Blood 28 mmol/L (21-32); Calcium, Blood 8.6 mg/dL (8.5-10.1); Chloride, Blood 101 mmol/L (98-108); Creatinine, Blood 1.98 mg/dL (0.40-1.00); Glomerular Filtration Rate 24 (60-); Glucose, Blood 111 mg/dL (70-99); Magnesium, Blood 1.8 mg/dL (1.6-2.4); Phosphorus, Blood 3.5 mg/dL (2.5-4.9); Potassium, Blood 3.7 mmol/L (3.5-5.5); Sodium, Blood 138 mmol/L (136-145)
--- NOTE | 2021-05-24 06:36 | NUR ---
Remains on sedation through night. will grimace with movement or stimuli but does not follow commands. Residuals for tube feeds 10-20 ml, tolerating trickle feeds. Still no BM. Anasarca with blisters and wheeping. pressure areas padded and elevated with pillows. Tolrating vent settings, no changes through night.
--- NOTE | 2021-05-24 07:15 | NUR ---
Assumed care of pt at 0700 from Danna DUDLEY. Pt sedated with propofol at 20 mcg/kg/min, fentanyl 50 mcg/hr. Propofol turned off at 0715 for sedation interruption. 7.5 cm ETT, 21 cm at gums. Vent settings ACVC 18/300/5/45%. SpO2 90% or greater. Small amount of frothy white sputum suctioned from ETT. Levophed 4 mcg/min, BP stable.
--- NOTE | 2021-05-24 11:22 | NUR ---
Case conference with IDT meeting earlier this am and later with pt's bedside RN. Brief visit made to bedside at that time. Pt appears comfortable without nonverbal indicators of pain, anxiety, restlessness or distress. She remains ventilated and unresponsive without sedatives. RR 22-24. Pain medication continues IV and plan is to titrate dosing down. Pt is having smaller residuals with trickle tube feeds so plan is to increase slowly and keep assessing tolerance. I returned for supportive visit when Js and pt's niece arrived to visit. Reviewed plan with Lila and listened as she verbalized her understanding of current status and she verbalized decisions hinged on biopsy results. Gently explored that pt is not well enough for cancer tx, even if bx shows treatable cancer. Tried to answer daughter's questions in simple terms re: why she might be having pain, whether she could breathe on her own and what would happen if ventilator support discontinued. Stressed that each individual pt's situation and variables are different, so many questions could not be answered with a hard or clear answer. Lila is clearly, appropriately grieving and aware of her mom's grave prognosis, regardless of the biopsy results. We discussed pt's unerlying COPD, current renal failure, failure to thrive at home x months all weighing in on current status. Pt's niece and Lila's cousin very supportive of Lila. Offered to return and planned return visit tomorrow at the [facility]. Brought Lila and cousin coffee and tea. RT at bedside providing care when I left.
[2021-05-24 13:34] LABS: Hematocrit 26.2 % (33.0-51.0); Hemoglobin 8.4 g/dL (11.5-16.0)
--- NOTE | 2021-05-24 13:58 | NUR ---
Propofol remains off. Fentanyl decreased to 25 mcg/hr per orders from Dr Roman. Levophed titrated off currently. Will continue to closely reassess as pt will be receiving dialysis this afternoon. TF advanced per orders. Pt's daughter and azael currently visiting at bedside.
--- NOTE | 2021-05-24 19:00 | NUR ---
SHIFT SUMMARY Neuro: Currently receiving 25 mcg/hr fentanyl. Propofol off since 0700. Pt opens eyes with repositioning, but otherwise has eyes closed. Does not answer questions. Does not follow commands. No gag. Cough present. 4 mm pupils PERRL. Musculoskeletal: Does not move extremities. Remains out of restraints. Dependent care for ADLs. Repositioned Q2H. Respiratory: ACVC 18/300/5/45%. SpO2 90% or greater. Small amount of thick, frothy white sputum suctioned from ETT. Lungs coarse with expiratory wheezes in all schreiber. 7.5 cm ETT, 21 cm at gums. Cardiac: SR per monitor. BP stable with 5 mcg/min levophed. Weeping edema bilat hands. Pitting edema BLE. 1+ radial, pedal, posttibial pulses. GI: Most recent residual measured and reinstilled 40 mL. Pt had BM today. Large and liquid with one piece of formed stool. Tube feeds advanced per orders. : Oliguria. 100 mL urine output today. Yellow and with sediment. Pt had hemodialysis today. Skin: Pressure ulcer on sacrum worsening. Remains stage 3. Currently open to air as previous dressing was soiled with bowel movement. Site cleaned. Pt hard-turned to right side. Psychosocial: VICTORIA due to intubation. Family updated by Dr Roman today.
--- NOTE | 2021-05-24 21:00 | NUR ---
Assumed Care: Pt opens eys to painful stimuli, No tracking, gag, or swallow. No motor movement. Minimal cough with suctioning. On Fentanyl 25mcq/hr for sedation. Pupils 4, sluggish. LS Wheezes upper lobes, diminished in bases. AC/VC Vent settings 18/300/5/45%. Minimal cream color secretions with suction. ETCO2 >30's, Sats >90%. Sinus on the monitor, strong radial pulses. Levophed 5mcq. Rate inn the 70's. ABD distended, firm, hypoactive BT. OG w/ Pivot 1.5 @ 10cc/hr, will increase per orders. Residual 5cc re-installed. Catheter patent and draining dark sediment urine, oligiara. On dialysis. Dialysis cath to L femoral trialysis. Skin fragile, pale. Dressings intact to bilateral hands for weeping, several small blisters to BUE. Bruising right side. Dressings to coccyx intact, see wound assessment in chart. PG to Right upper arm flushed. Will continue to monitor.
[2021-05-25 03:34] LABS: Bicarbonate Venous 30.2 mmol/L (24.0-30.0); PCO2 Venous 40.1 mmHg (38-42); PO2 Venous 67.9 mmHg (38-42); pH Blood Venous 7.49 (7.34-7.37)
[2021-05-25 03:44] LABS: Hematocrit 25.8 % (33.0-51.0); Hemoglobin 8.4 g/dL (11.5-16.0); Mean Corpuscular HGB 27.6 pg (26.0-34.0); Mean Corpuscular HGB Conc 32.6 g/dL (31.5-36.5); Mean Corpuscular Volume 85 fL (80-100); Mean Platelet Volume 10.6 fL (9.1-12.4); Platelet Count 349 K/mm3 (150-400); RDW Coefficient Variation 18.7 % (11.7-14.2); RDW Standard Deviation 54.2 fL (35.1-46.3); Red Blood Cell Count 3.04 M/mm3 (3.80-5.20); White Blood Cell Count 41.89 K/mm3 (4.00-11.30)
[2021-05-25 04:04] LABS: Albumin, Blood 1.9 g/dL (3.4-5.0); Anion Gap 8 mmol/L (6-16); Blood Urea Nitrogen 38 mg/dL (8-24); Bun/Creatinine Ratio 20.7 (12.0-20.0); CO2, Blood 29 mmol/L (21-32); Calcium, Blood 8.6 mg/dL (8.5-10.1); Chloride, Blood 98 mmol/L (98-108); Creatinine, Blood 1.84 mg/dL (0.40-1.00); Glomerular Filtration Rate 27 (60-); Glucose, Blood 143 mg/dL (70-99); Phosphorus, Blood 2.6 mg/dL (2.5-4.9); Potassium, Blood 3.7 mmol/L (3.5-5.5); Sodium, Blood 135 mmol/L (136-145)
[2021-05-25 05:14] LABS: BAND PERCENT MAN 4 % (0-8); BASOPHILS PERCENT MAN 0 % (0-2); EOSINOPHILS PERCENT MAN 0 % (0-6); LYMPHOCYTES ABSOLUTE MAN 1.67 K/mm3 (0.84-5.20); LYMPHOCYTES PERCENT MAN 4 % (21-46); MONOCYTES ABSOLUTE MAN 0.83 K/mm3 (0.16-1.47); MONOCYTES PERCENT MAN 2 % (4-13); NEUTROPHILS ABSOLUTE MAN 39.37 K/mm3 (1.96-9.15); SEG NEUTROPHILS PERCENT MAN 90 % (41-73); TOTAL CELLS COUNTED 100
--- NOTE | 2021-05-25 06:27 | NUR ---
Shift Summary: Pt is non-responsive except for spontanously opens eyes when being moved. Does not track, swallow, or move extremities. Very small gag and cough with suctioning. On 25mcq of Fentanyl for sedation. LS coarse with diminished bases. AC/VC vent settings remain the same 18/300/6/45%. ETCO2 average 30-35. Scant amount of frothy white secretions. Sinus on monitor rate in the 80's. MAP 65-70. Levo remains at 5mcq. +3-4 edema BUE and BLE, weeping in BUE. Dependent pitting in the abdomin and trunk. Hypoactive BT, only strikes of BM noted. TF at goal of 30ml/hr. Oligria wiht only 45ml of cloudy dark urine. On Dialysis. Skin fragile, bruising remains on the right side, open area on coccyx, dressing applied. WBC, Creatine, and BUN continue to be abnormal, see chart. Will report to [facility]
--- NOTE | 2021-05-25 08:00 | NUR ---
PT REMAINS MECHANICALLY VENTILATED. PT IS NONRESPONSIVE TO NOXIOUS STIMULI. SHE DOES OPEN HER EYES, BUT NOT TO COMMANDS AND IS NOT TRACKING. RIGHT UPWARD GAZE NOTED. PUPILS 4 MM AND BRISK. UPPER EXTREMITIES APPEAR FLACCID AND PT HAS NOT MOVED UPPER OR LOWER EXTREMITIES SPONTANEOUSLY. FENTANYL CONTINUOUS HAS BEEN DISCONTINUED PER DR. GARCIA. DR. GARCIA IN TO EVALUATE PT-FULL UPDATE GIVEN. ECG SHOWS SR WITH FREQUENT PAC'S. MAP TRENDING 60-65 WITH LEVOPHED @ 5 MCG/MIN.EDEMA CONTINUES-ESPECIALLY TO THE HANDS WHICH ARE WHEEPING. LUNGS ARE COARSE AND WHEEZY TO UPPER LOBES AND DIMINISHED IN THE BASES. SATS>90% ON AC 18, RR 22-28, 300, 5, 45%. ETT SUCTION PRODUCTIVE OF MODERATE AMOUNT OF THICK, TANISH SECRETIONS. PT TOLERATING OGTF WELL. ABDOMEN APPEARS LESS DISTENDED AND FIRM. FEW, HYPO BT'S AUSCULTATED AND PT DID HAVE LARGE, BROWN, LIQUID STOOL. ALVAREZ WITH SMALL AMOUNT OF DARK, YELLOW, URINE WITH SEDIMENT. ANTICIPATE DIALYSIS TODAY. DRESSING CHANGED TO LEFT FEMORAL TRIALYSIS CATHETER. WILL DISCUSS POSSIBLE REMOVAL OR LSC QUAD LUMEN TODAY IS DAY 7-WILL DISCUSS WITH DR. GARCIA. GIANFRANCO EXTENDED DWELL CATH SITE IS CLEAR AND IV FLUSHES WELL. SKIN CARE DONE TO BOTH HANDS. RIGHT HAND SKIN TEAR IS WHEEPING A LARGE AMOUNT OF CLEAR LIQUID. THOUGH IT IS WHEEPING, THE WOUND ITSELF SEEMS IMPROVED FORM MY PREVIOUS ASSESSMENT ON 05/21/21. COCCYX WITH STAGE III PRESSURE ULCER NOTED. THE WOUND BED IS BEEFY RED IN APPEARANCE. THE SURROUNDING SKIN IS RED/PURPLE. THE WOUND EDGES AND SURROUNDING TISSUE APPEAR EDEMATOUS. CLEANSED WITH STERIL WATER, PATTED DRY AND NEW FOAM DRESSING PLACED. THERE IS A SMALL DIME SIZED WOUND TO THE RIGHT BUTTOCK. THE WOUND BED IS RES AND THER IS A MODERATE AMOUNT OF SANGIONOUS DRAINAGE NOTED. THE SURROUNDING TISSUE IS NORMAL AND THE WOUND EDGES/SURROUNDING SKIN IS MILDLY EDEMATOUS.CLEANSED RIGHT BUTTOCK WOUND WITH STERILE WATER, PATTED DRY, AND ANTONIO FOAM DRESSING PLACED.PT REPOSITIONED TO RIGHT SIDE, OFF OF HER BOTTOM.
--- NOTE | 2021-05-25 11:30 | NUR ---
PT HAS BEEN UNDERGOING HEMODIALYSIS SINCE APROXIMATELY 09. PT MAINTAINS MAPS 65-70'S ON LEVOPHED @ 5 MCG/MIN. PT GRIMACES TO ORAL CARE AND PAINFUL STIMULI. NO OTHER NEURO CHANGES. PT HAS BEEN OFF OF ALL PAIN MEDICATIONS AND SEDATIVES SINCE 0800 THIS AM. PT REMAINS UNRESPONSIVE EXCEPT FOR GRIMACING TO NOXIOUS STIMULI. NO VENT CHANGES. PT MAINTAINS SATS>90% ON 45% OGTF TOLERATED WELL. PT INCONTINENT OF EXTRA, LARGE, BROWN, LIQUID STOOL. PARTIAL BATH AND LINEN CHANGE COMPLETED. NEW COCCYX FOAM DRESSING PLACED. PT DAUGHTER KASSI IN FOR VISIT. UPDATED TO CURRENT STATUS AND PLAN OF CARE.
--- NOTE | 2021-05-25 12:10 | NUR ---
HEMODIALYSIS COMPLETE. MAP 65-70 WITH LEVOPHED @ 5 MCG/MIN.
--- NOTE | 2021-05-25 14:00 | NUR ---
SPOKE WITH PT DAUGHTER REGARDING PLAN OF CARE AND POSSIBLE WITHDRAWL OF CARE. PT DAUGHTER STATES "I KNOW THAT SHE WOULD NOT LIKE TO LIVE LIKE THIS." PT DAUGHTER PLANS TO SPEAK WITH PT SON AND DISCUSS PLAN OF CARE. DR. GARCIA UPDATED AND SHE WILL STOP BY LATER THIS AFTERNOON.
--- NOTE | 2021-05-25 16:32 | NUR ---
PT MADE COMFORT CARE PER FAMILY REQUEST. MED WITH MORPHINE 5 MG IVP X 1, ATIVAN 1 MG IVP X 1, AND ATROPINE DROPS GIVEN VIA ETT PRIOR TO EXTUBATION. ONCE PT EXTUBATED, FAMILY AT BEDSIDE.
--- NOTE | 2021-05-25 17:00 | NUR ---
PT WITH FAMILY AT THE BEDSIDE. FINAL DC PER OCTAVIA ROSEN. PT DAUGHTER KASSI HAS PT BELONGINGS.
== END 2021-05-25 18:20 | DRG 853 ==
LOC: ER 15:24 → SURS 21:30 → ICUW 21:30 → SURS 21:32 → ICUW 05-15 02:30
PROVIDERS: Emergency Medicine; Family Medicine; Internal Medicine; Internal Medicine Critical Care Medicine; Internal Medicine Nephrology; Pharmacist; ADMIT Surgery
PROC: 5A1955Z Respiratory Ventilation, Greater than 96 Consecutive Hours (ICD-10-PCS; principal; 2021-05-13)
PROC: 3E03329 Introduction of Other Anti-infective into Peripheral Vein, Percutaneous Approach (ICD-10-PCS; 2021-05-13)
PROC: 30233N1 Transfusion of Nonautologous Red Blood Cells into Peripheral Vein, Percutaneous Approach (ICD-10-PCS; 2021-05-17)
PROC: 02HV33Z Insertion of Infusion Device into Superior Vena Cava, Percutaneous Approach (ICD-10-PCS; 2021-05-18)
PROC: 3E043XZ Introduction of Vasopressor into Central Vein, Percutaneous Approach (ICD-10-PCS; 2021-05-18)
PROC: 0BBG8ZX Excision of Left Upper Lung Lobe, Via Natural or Artificial Opening Endoscopic, Diagnostic (ICD-10-PCS; 2021-05-22)
PROC: 0BDG8ZX Extraction of Left Upper Lung Lobe, Via Natural or Artificial Opening Endoscopic, Diagnostic (ICD-10-PCS; 2021-05-22)
PROC: 0BJ08ZZ Inspection of Tracheobronchial Tree, Via Natural or Artificial Opening Endoscopic (ICD-10-PCS; 2021-05-22)
PROC: 06HY33Z Insertion of Infusion Device into Lower Vein, Percutaneous Approach (ICD-10-PCS; 2021-05-22)
PROC: 5A1D70Z Performance of Urinary Filtration, Intermittent, Less than 6 Hours Per Day (ICD-10-PCS; 2021-05-22)
DX: A41.01 Sepsis due to Methicillin susceptible Staphylococcus aureus (principal); J15.212 Pneumonia due to Methicillin resistant Staphylococcus aureus; S27.2XXA Traumatic hemopneumothorax, initial encounter; E43 Unspecified severe protein-calorie malnutrition; J96.01 Acute respiratory failure with hypoxia; J96.02 Acute respiratory failure with hypercapnia; R65.21 Severe sepsis with septic shock; K85.90 Acute pancreatitis without necrosis or infection, unspecified; G92.8 Other toxic encephalopathy; N17.0 Acute kidney failure with tubular necrosis; S22.41XA Multiple fractures of ribs, right side, initial encounter for closed fracture; J44.1 Chronic obstructive pulmonary disease with (acute) exacerbation; C34.90 Malignant neoplasm of unspecified part of unspecified bronchus or lung; J90 Pleural effusion, not elsewhere classified; J44.0 Chronic obstructive pulmonary disease with (acute) lower respiratory infection; E87.1 Hypo-osmolality and hyponatremia; I48.92 Unspecified atrial flutter; Z51.5 Encounter for palliative care; Z66 Do not resuscitate; Z20.822 Contact with and (suspected) exposure to COVID-19; I48.91 Unspecified atrial fibrillation; E83.52 Hypercalcemia; D75.839 Thrombocytosis, unspecified; E88.09 Other disorders of plasma-protein metabolism, not elsewhere classified; K59.00 Constipation, unspecified; Z78.1 Physical restraint status; Z68.25 Body mass index [BMI] 25.0-25.9, adult; D63.0 Anemia in neoplastic disease; Z88.0 Allergy status to penicillin; Z88.1 Allergy status to other antibiotic agents; Z88.8 Allergy status to other drugs, medicaments and biological substances; Z79.899 Other long term (current) drug therapy; Z79.01 Long term (current) use of anticoagulants
CPT/HCPCS: 0241U; 31500; 31720; 36415; 36430; 36556; 36600; 51702; 70450; 71045; 71260; 72125; 74176; 74177; 76705; 80048; 80053; 80069; 80074; 80202; 81001; 82042; 82140; 82248; 82306; 82310; 82550; 82803; 82945; 83605; 83615; 83735; 83880; 83970; 84100; 84145; 84157; 85014; 85018; 85025; 85060; 85520; 85610; 85730; 86317; 86850; 86900; 86901; 86923; 87040; 87070; 87077; 87086; 87147; 87186; 87205; 88108; 88173; 88305; 88341; 88342; 89051; 93005; 93010; 93308; 93971; 94002; 94003; 94640; 94644; 94660; 94664; 94760; 94762; 96374; 96375; 96376; 97162; 97166; 97530; 97535; 99284-25; A9270; C1751; C1752; C9113; J0171; J0282; J0330; J0630; J0690; J0692; J0713; J0881; J1170; J1644; J2060; J2250; J2270; J2310; J2704; J2765; J3010; J3370; J7030; J7050; J7060; J7070; P9016; P9041; P9046; Q9967